=== PATIENT | male | born 1985 | race African-American/Black ===

== ENCOUNTER 2016-03-28 09:25 | Emergency (ER) | payer BC ==
[2016-03-28] MEDS ORDERED: ASPIRIN 81 MG TABLET, CHEWABLE PO ONE (10:58)
--- NOTE | 2016-03-28 11:00 | ER Document Report ---
ED Medical Screen (RME) - General Chief Complaint: Cough Stated Complaint: BREATHING CONCERNS Mode of Arrival: Ambulatory Information source: Patient Notes: Patient complains of cough and difficulty breathing for the past several months that worsened over the past 3 days. Patient does report midsternal chest pain for the past 2 days. No fever. Patient without any wheezing in triage area. hx: Asthma I have greeted and performed a rapid initial assessment of this patient. A comprehensive ED assessment and evaluation of the patient, analysis of test results and completion of the medical decision making process will be conducted by additional ED providers. TRAVEL OUTSIDE OF THE [place] IN LAST 30 DAYS: No - Related Data Allergies/Adverse Reactions: No Known Allergies Allergy (Verified 03/28/16 10:04) Past Medical History - Social History Chew tobacco use (# tins/day): No Pulmonary Medical History: Reports: Hx Asthma Renal/ Medical History: Denies: Hx Peritoneal Dialysis - Immunizations Hx Diphtheria, Pertussis, Tetanus Vaccination: Yes Physical Exam - Vital signs Vitals: Temp Pulse Resp BP Pulse Ox 98.6 F 81 16 134/68 H 95 03/28/16 09:52 03/28/16 09:52 03/28/16 09:52 03/28/16 09:52 03/28/16 09:52 - Respiratory Respiratory status: No respiratory distress Breath sounds: Nonproductive cough. No: Rales, Rhonchi, Stridor, Wheezing Course - Vital Signs Vital signs: Temp Pulse Resp BP Pulse Ox 98.6 F 81 16 134/68 H 95 03/28/16 09:52 03/28/16 09:52 03/28/16 09:52 03/28/16 09:52 03/28/16 09:52
[2016-03-28 11:29] LABS: ABSOLUTE EOSINOPHILS # (AUTO) 0.1 10^3/uL (0.0-0.6); ABSOLUTE LYMPHOCYTES (AUTO) 1.7 10^3/uL (0.5-4.7); ABSOLUTE MONOCYTES (AUTO) 0.6 10^3/uL (0.1-1.4); ABSOLUTE NEUT (AUTO) 7.6 10^3/uL (1.7-8.2); BASOPHILS % (AUTO) 0.4 % (0-2); EOSINOPHILS % (AUTO) 1.1 % (0-6); HEMATOCRIT 46.6 % (37.9-51.0); HEMOGLOBIN 15.6 g/dL (13.5-17.0); HGB HCT DIFFERENCE 0.2; LYMPHOCYTES % (AUTO) 17.3 % (13-45); MEAN CORPUSCULAR HEMOGLOBIN 27.7 pg (27.0-33.4); MEAN CORPUSCULAR HGB CONC 33.5 g/dL (32.0-36.0); MEAN CORPUSCULAR VOLUME 83 fl (80-97); MONOCYTES % (AUTO) 6.1 % (3-13); RED BLOOD COUNT 5.64 10^6/uL (4.35-5.55); RED CELL DISTRIBUTION WIDTH 13.7 % (11.5-14.0); SEGMENTED NEUTROPHILS % (AUTO) 75.1 % (42-78); WHITE BLOOD COUNT 10.1 10^3/uL (4.0-10.5)
[2016-03-28 11:45] LABS: ALANINE AMINOTRANSFERASE 28 U/L (21-72); ALBUMIN 4.6 g/dL (3.5-5.0); ALKALINE PHOSPHATASE 81 U/L (38-126); ANION GAP 12 (5-19); ASPARTATE AMINO TRANSFERASE 21 U/L (17-59); BILIRUBIN,TOTAL 0.9 mg/dL (0.2-1.3); BLOOD UREA NITROGEN 14 mg/dL (7-20); CALCIUM 9.6 mg/dL (8.4-10.2); CARBON DIOXIDE 30 mmol/L (22-30); CHLORIDE 103 mmol/L (98-107); CREATINE KINASE 262 U/L (55-170); CREATININE RESULT 1.15 mg/dL (0.52-1.25); GLUCOSE 80 mg/dL (75-110); POTASSIUM 3.7 mmol/L (3.6-5.0); SODIUM 144.5 mmol/L (137-145); TOTAL PROTEIN 7.9 g/dL (6.3-8.2)
[2016-03-28 11:57] LABS: CREATINE KINASE MB 0.59 ng/mL (<4.55)
[2016-03-28 12:00] LABS: TROPONIN I < 0.012 ng/mL
--- NOTE | 2016-03-28 13:17 | ER Document Report ---
ED Respiratory Problem - General Chief Complaint: Cough Stated Complaint: BREATHING CONCERNS Time seen by provider: 13:14 Mode of Arrival: Ambulatory Information source: Patient Notes: 30-year-old obese, non smoking, non dm, non htn male complaining of cough since Sunday. Last night he coughed a lot with alejandra expectorant He started getting retrosternal chest pain with a cough last night and this morning. Labs have been resulted from triage including reactive enzymes which are negative. Chest x-ray is negative. He has a history of asthma. No pain at this time unless he coughs. TRAVEL OUTSIDE OF THE [place] IN LAST 30 DAYS: No - Related Data Allergies/Adverse Reactions: No Known Allergies Allergy (Verified 03/28/16 10:04) Past Medical History - General Information source: Patient - Social History Smoking Status: Never Smoker Chew tobacco use (# tins/day): No Frequency of alcohol use: None Drug Abuse: None Lives with: Family Family History: Reviewed & Not Pertinent Patient has suicidal ideation: No Patient has homicidal ideation: No Pulmonary Medical History: Reports: Hx Asthma Renal/ Medical History: Denies: Hx Peritoneal Dialysis Surgical Hx: Negative - Immunizations Hx Diphtheria, Pertussis, Tetanus Vaccination: Yes Review of Systems - Review of Systems Constitutional: No symptoms reported EENT: See HPI Cardiovascular: No symptoms reported Respiratory: See HPI Gastrointestinal: No symptoms reported Genitourinary: No symptoms reported Male Genitourinary: No symptoms reported Musculoskeletal: No symptoms reported Skin: No symptoms reported Hematologic/Lymphatic: No symptoms reported Neurological/Psychological: No symptoms reported Physical Exam - Vital signs Vitals: Temp Pulse Resp BP Pulse Ox 98.6 F 81 16 134/68 H 95 03/28/16 09:52 03/28/16 09:52 03/28/16 09:52 03/28/16 09:52 03/28/16 09:52 Interpretation: Normal, Other - pulse ox 95% - General General appearance: Appears well, Alert In distress: None - HEENT Head: Normocephalic, Atraumatic Eyes: Normal Conjunctiva: Normal Pupils: PERRL Tympanic membrane: Normal Pharynx: Erythema Neck: Supple. No: Lymphadenopathy - Respiratory Respiratory status: No respiratory distress Chest status: Nontender Breath sounds: Normal Chest palpation: Normal - Cardiovascular Rhythm: Regular Heart sounds: Normal auscultation Murmur: No - Abdominal Inspection: Normal Distension: No distension Bowel sounds: Normal Tenderness: Nontender Organomegaly: No organomegaly - Back Back: Normal, Nontender - Extremities General upper extremity: Normal inspection, Nontender, Normal color, Normal ROM , Normal temperature General lower extremity: Normal inspection, Nontender, Normal color, Normal ROM , Normal temperature, Normal weight bearing. No: Kirsten's sign - Neurological Neuro grossly intact: Yes Cognition: Normal Orientation: AAOx4 Henrietta Coma Scale Eye Opening: Spontaneous Henrietta Coma Scale Verbal: Oriented Charles Coma Scale Motor: Obeys Commands Charles Coma Scale Total: 15 Speech: Normal Motor strength normal: LUE, RUE, LLE, RLE Sensory: Normal - Psychological Associated symptoms: Normal affect, Normal mood - Skin Skin Temperature: Warm Skin Moisture: Dry Skin Color: Normal Skin irregularity: negative: Rash Course - Re-evaluation Re-evalutation: 03/28/16 13:18 I have consulted with the supervisory physician per [facility] Guidelines., dr catalan, Labs, chest xray are negative. EKG NSR, OK to go home. - Vital Signs Vital signs: Temp Pulse Resp BP Pulse Ox 98.2 F 76 16 127/80 H 99 03/28/16 13:40 03/28/16 13:40 03/28/16 13:40 03/28/16 13:40 03/28/16 13:40 - Laboratory Result Diagrams: 03/28/16 11:05 03/28/16 11:05 Laboratory results interpreted by me: 03/28/16 03/28/16 11:05 11:05 RBC 5.64 H Creatine Kinase 262 H Discharge - Discharge Clinical Impression: chest pain with cough, History of asthma Upper respiratory infection Qualifiers: URI type: unspecified viral URI Qualified Code(s): J06.9 - Acute upper respiratory infection, unspecified Condition: Good Disposition: HOME, SELF-CARE Instructions: Upper Respiratory Illness ([facility]), Asthma ([facility]), Inhaled Bronchodilators ([facility]), Family Physicians / Practices, [facility] Additional Instructions: to er if worse use the inhaler for cough and wheeze see family practice doctor or see the [facility] again for recheck tomorrow Prescriptions: Albuterol Sulfate [Proair HFA Inhalation Aerosol 8.5 gm MDI] 2 puff IH Q3HP PRN #1 [id number].[email or web address] PRN Reason: Forms: Return to Work Referrals: BLANCO SMITH NP [Primary Care Provider] - Follow up as needed
--- NOTE | 2016-03-28 13:24 | EKG REPORT ---
SEVERITY:- NORMAL ECG - SINUS RHYTHM : Confirmed by: Orlando Lopez MD 28-Mar-2016 13:23:55
[2016-03-28 13:43] VITALS: BP 127/80
== END 2016-03-28 13:40 | disposition home or self-care (01) ==
LOC: ER 09:25
DX: J06.9 Acute upper respiratory infection, unspecified (principal); R07.9 Chest pain, unspecified; R05 Cough; R06.02 Shortness of breath
CPT/HCPCS: 36415; 71020; 80053; 82550; 82553; 84484; 85025; 93005; 93010; 99284

== ENCOUNTER 2016-07-24 07:33 | Emergency (ER) | payer BC ==
[2016-07-24] MEDS ORDERED: IPRATROPIUM/ALBUTEROL 0.5-2.5 MG/3 ML AMPUL NEB ONE (08:10)
[2016-07-24] MEDS ORDERED: GUAIFENESIN/D-METHORPHAN (200-20 MG) SYRUP 10 ML PO ONE (08:10)
--- NOTE | 2016-07-24 09:19 | RADIOLOGY REPORT (SQ) ---
EXAM DESCRIPTION: CHEST PA/LAT COMPLETED DATE/TIME: 07/24/2016 9:08 am REASON FOR STUDY: asthma, cough 2 weeks COMPARISON: 03/28/2016 TECHNIQUE: Frontal and lateral radiographic views of the chest acquired. NUMBER OF VIEWS: Two view. LIMITATIONS: None. FINDINGS: LUNGS AND PLEURA: No opacities, masses or pneumothorax. No pleural effusion. MEDIASTINUM AND HILAR STRUCTURES: No masses or contour abnormalities. HEART AND VASCULAR STRUCTURES: Heart normal size. No evidence for failure. BONES: No acute findings. HARDWARE: None in the chest. OTHER: No other significant finding. IMPRESSION: NO SIGNIFICANT RADIOGRAPHIC FINDING IN THE CHEST. TECHNICAL DOCUMENTATION: JOB ID: [id number] [employer]- All Rights Reserved
[2016-07-24] MEDS ORDERED: AZITHROMYCIN 250 MG TABLET PO ONE (09:31)
--- NOTE | 2016-07-24 09:32 | ER Document Report ---
ED Respiratory Problem - General Chief Complaint: Cough Stated Complaint: COUGH Time Seen by Provider: 07/24/16 08:10 Mode of Arrival: Ambulatory Information source: Patient Notes: Is a 30-year-old asthmatic male who presents to the ER today for 2 weeks of cough, shortness of breath, wheezing. Patient denies any fevers or chills but states that his inhaler has not been working. He uses ProAir every 4 hours which she does have enough off. TRAVEL OUTSIDE OF THE [place] IN LAST 30 DAYS: No - Related Data Allergies/Adverse Reactions: No Known Allergies Allergy (Verified 07/24/16 07:42) Past Medical History - General Information source: Patient - Social History Smoking Status: Current Every Day Smoker Chew tobacco use (# tins/day): No Frequency of alcohol use: Occasional Drug Abuse: None Family History: Reviewed & Not Pertinent Patient has suicidal ideation: No Patient has homicidal ideation: No Pulmonary Medical History: Reports: Hx Asthma Renal/ Medical History: Denies: Hx Peritoneal Dialysis - Immunizations Hx Diphtheria, Pertussis, Tetanus Vaccination: Yes Review of Systems - Review of Systems Constitutional: No symptoms reported EENT: No symptoms reported Cardiovascular: No symptoms reported Respiratory: See HPI Gastrointestinal: No symptoms reported Genitourinary: No symptoms reported Male Genitourinary: No symptoms reported Musculoskeletal: No symptoms reported Skin: No symptoms reported Hematologic/Lymphatic: No symptoms reported Neurological/Psychological: No symptoms reported Physical Exam - Vital signs Vitals: Temp Pulse Resp BP Pulse Ox 98.7 F 66 20 124/62 97 07/24/16 07:42 07/24/16 07:42 07/24/16 07:42 07/24/16 07:42 07/24/16 07:42 - Notes Notes: PHYSICAL EXAMINATION: GENERAL: Mildly ill-appearing, but in no acute distress. HEAD: Atraumatic, normocephalic. EYES: Pupils equal round and reactive to light, extraocular movements intact, sclera anicteric, conjunctiva are normal. ENT: ear canals without erythema or foreign body, TMs pearly starr with good bony landmarks, nares patent, oropharynx clear without exudates. Moist mucous membranes. NECK: Normal range of motion, supple without lymphadenopathy LUNGS: Mild expiratory wheezes bilateral lower lung white, no rales or rhonchi. HEART: Regular rate and rhythm without murmurs EXTREMITIES: Normal range of motion, no pitting edema. No cyanosis. NEUROLOGICAL: Cranial nerves grossly intact. Normal sensory/motor exams. PSYCH: Normal mood, normal affect. SKIN: Warm, Dry, normal turgor, no rashes or lesions noted Course - Re-evaluation Re-evalutation: 07/24/16 09:34 Chest x-ray is negative for any acute pathology. Patient feels better after breathing treatment - Vital Signs Vital signs: Temp Pulse Resp BP Pulse Ox 98.7 F 66 20 124/62 97 07/24/16 07:42 07/24/16 07:42 07/24/16 07:42 07/24/16 07:42 07/24/16 07:42 Discharge - Discharge Clinical Impression: Asthmatic bronchitis Qualifiers: Asthma severity: unspecified severity Asthma complication type: with acute exacerbation Qualified Code(s): J45.901 - Unspecified asthma with (acute) exacerbation Condition: Stable Disposition: HOME, SELF-CARE Instructions: Bronchitis With Bronchospasm (Wheezing) ([facility]) Additional Instructions: Return immediately for any new or worsening symptoms. Follow up with primary care provider, call tomorrow to make followup appointment. Prescriptions: Azithromycin [Zithromax 250 mg Tablet] 250 mg PO ASDIR PRN #6 tablet PRN Reason: D-Methorphan Hb/Prometh HCl [Promethazine-Dm Syrup] 5 ml PO Q8 PRN #120 ml PRN Reason: Prednisone 60 mg PO DAILY #15 tablet Forms: Return to Work
[2016-07-24 10:05] VITALS: BP 110/65
== END 2016-07-24 09:50 | disposition home or self-care (01) ==
LOC: ER 07:33
DX: J45.901 Unspecified asthma with (acute) exacerbation (principal); R05 Cough; R06.02 Shortness of breath; F17.200 Nicotine dependence, unspecified, uncomplicated; Z79.899 Other long term (current) drug therapy
CPT/HCPCS: 94640; 99283; 71020; J3490; J7620

== ENCOUNTER 2017-06-25 15:15 | Emergency (ER) | payer BC ==
[2017-06-25 15:46] LABS: APPEARANCE,URINE CLEAR; BILIRUBIN,URINE NEGATIVE (NEGATIVE); COLOR,URINE YELLOW; GLUCOSE, URINE NEGATIVE (NEGATIVE); KETONES,URINE NEGATIVE (NEGATIVE); LEUKOCYTE ESTERASE,URINE NEGATIVE (NEGATIVE); NITRITE,URINE NEGATIVE (NEGATIVE); PROTEIN,URINE NEGATIVE (NEGATIVE); URINE SPECIFIC GRAVITY 1.021; UROBILINOGEN,URINE NEGATIVE mg/dL (<2.0)
[2017-06-25] MEDS ORDERED: ACETAMINOPHEN 325 MG TABLET PO ONE (16:34)
--- NOTE | 2017-06-25 16:37 | ER Document Report ---
ED Medical Screen (RME) - General Chief Complaint: Penile Problem Stated Complaint: GROIN PAIN Time Seen by Provider: 06/25/17 16:33 Notes: RAPID MEDICAL EVALUATION DISCLOSURE I have seen this patient as part of a Rapid Medical Evaluation and, if applicable, placed any initially appropriate orders. The patient will be seen and fully evaluated, including a full history and physical exam, by a provider ( in Main ED or Fast Track) when a room becomes available. 31-year-old male here with complaints of left testicular pain that started 2 days ago. Pain is intermittent. Pain is worse with laying on the left side and laying on the back. He has been taking aspirin for the pain. He denies any redness or swelling of the scrotum or testicles. He denies any abdominal pain penile pain/swelling discharge hematuria dysuria or frequency. EXAM Clear to auscultation bilaterally Regular rate and rhythm No abdominal tenderness TRAVEL OUTSIDE OF THE [place] IN LAST 30 DAYS: No - Related Data Allergies/Adverse Reactions: No Known Allergies Allergy (Verified 06/25/17 15:21) Past Medical History Pulmonary Medical History: Reports: Hx Asthma Renal/ Medical History: Denies: Hx Peritoneal Dialysis - Immunizations Hx Diphtheria, Pertussis, Tetanus Vaccination: Yes Physical Exam - Vital signs Vitals: Temp Pulse Resp BP Pulse Ox 98.7 F 67 14 143/76 H 96 06/25/17 15:23 06/25/17 15:23 06/25/17 15:23 06/25/17 15:23 06/25/17 15:23 Course - Vital Signs Vital signs: Temp Pulse Resp BP Pulse Ox 98.7 F 67 14 143/76 H 96 06/25/17 15:23 06/25/17 15:23 06/25/17 15:23 06/25/17 15:23 06/25/17 15:23
[2017-06-25 18:53] LABS: CHLAM PCR NOT DETECTED (NOT DETECT); GON PCR NOT DETECTED (NOT DETECT)
--- NOTE | 2017-06-25 19:10 | ER Document Report ---
ED General - General Chief Complaint: Penile Problem Stated Complaint: GROIN PAIN Time Seen by Provider: 06/25/17 16:33 Notes: Patient is a 31-year-old male without chronic medical problems who presents with 6-8 months of intermittent left testicular pain. The patient states 1-2 times weekly he develops approximately 1-2 hours of stabbing, severe, throbbing pain to his left testicle. He states the pain comes on abruptly and generally spontaneously resolves. He has been evaluated in the emergency department as well as by urologist without etiology of the pain being discovered. He states that he believes the pain may be related to wearing tight fitting pants at work. He does wear loose fitting boxer briefs. He denies any dysuria, penile discharge, scrotal lesions or scrotal swelling. No vomiting. No fever. TRAVEL OUTSIDE OF THE [place] IN LAST 30 DAYS: No - Related Data Allergies/Adverse Reactions: No Known Allergies Allergy (Verified 06/25/17 15:21) Past Medical History - General Information source: Patient - Social History Smoking Status: Never Smoker Frequency of alcohol use: None Drug Abuse: None Lives with: Alone Family History: Reviewed & Not Pertinent Patient has suicidal ideation: No Patient has homicidal ideation: No Pulmonary Medical History: Reports: Hx Asthma Renal/ Medical History: Denies: Hx Peritoneal Dialysis - Immunizations Hx Diphtheria, Pertussis, Tetanus Vaccination: Yes Review of Systems - Review of Systems Notes: Constitutional: Negative for fever. HENT: Negative for sore throat. Eyes: Negative for visual changes. Cardiovascular: Negative for chest pain. Respiratory: Negative for shortness of breath. Gastrointestinal: Negative for abdominal pain, vomiting or diarrhea. Genitourinary: Positive for left testicular pain Musculoskeletal: Negative for back pain. Skin: Negative for rash. Neurological: Negative for headaches, weakness or numbness. 10 point ROS negative except as marked above and in HPI. Physical Exam - Vital signs Vitals: Temp Pulse Resp BP Pulse Ox 98.7 F 67 14 143/76 H 96 06/25/17 15:23 06/25/17 15:23 06/25/17 15:23 06/25/17 15:23 06/25/17 15:23 Interpretation: Normal Notes: PHYSICAL EXAMINATION: GENERAL: Well-appearing, well-nourished and in no acute distress. HEAD: Atraumatic, normocephalic. EYES: Pupils equal round and reactive to light, extraocular movements intact, sclera anicteric, conjunctiva are normal. ENT: nares patent, oropharynx clear without exudates. Moist mucous membranes. NECK: Normal range of motion, supple without lymphadenopathy LUNGS: Breath sounds clear to auscultation bilaterally and equal. No wheezes rales or rhonchi. HEART: Regular rate and rhythm without murmurs ABDOMEN: Soft, nontender, normoactive bowel sounds. No guarding, no rebound. No masses appreciated. : No testicular swelling, tenderness or pain on palpation of the testicles. No epididymal tenderness. No scrotal swelling. Positive cremasteric reflex bilaterally. No penile lesions or discharge. EXTREMITIES: Normal range of motion, no pitting or edema. No cyanosis. NEUROLOGICAL: No focal neurological deficits. Moves all extremities spontaneously and on command. PSYCH: Normal mood, normal affect. SKIN: Warm, Dry, normal turgor, no rashes or lesions noted. Course - Re-evaluation Re-evalutation: 06/25/17 19:07 Presents with 8 months of intermittent left testicular pain. Testicular exam is benign without any swelling, induration or pain to palpation of the testicle or epididymis on the left. Positive cremasteric reflex bilaterally. No hernia on examination. Anticipate the patient may be experiencing pain from an overly tight work uniform as he reports that it typically happens after he wears the pants that he needs to wear for his work. He also wears nonsupportive underwear. I have encouraged him to begin using more supportive underwear and will write a work note to allow him to wear pants that are less tight fitting so as to prevent this again. Urinalysis and gonorrhea and Chlamydia are unremarkable. Testicular ultrasound likewise unremarkable. At this time will discharge with return precautions and follow-up recommendations. Verbal discharge instructions given a the bedside and opportunity for questions given. Medication warnings reviewed. Patient is in agreement with this plan and has verbalized understanding of return precautions and the need for primary care follow-up in the next 24-72 hours. - Vital Signs Vital signs: Temp Pulse Resp BP Pulse Ox 98.9 F 74 20 138/101 H 99 06/25/17 20:31 06/25/17 20:31 06/25/17 20:31 06/25/17 20:31 06/25/17 20:31 - Diagnostic Test Radiology reviewed: Reports reviewed Discharge - Discharge Clinical Impression: Left testicular pain Condition: Good Disposition: HOME, SELF-CARE Additional Instructions: The exact cause of your testicular pain is uncertain but may be due to compression of your testicle from the pants are wearing at work and wearing unsupportive underwear. As we discussed, please purchase spandex underwear that go down to your knee to provide more appropriate support for your scrotum. Please also wear less tight fitting pants so as to avoid compressing the scrotum and your left testicle. Return if you develop worsening pain, persistent vomiting, fever, pain when you urinate, penile discharge, or any other symptoms that are worrisome to you. Follow-up with your primary care doctor within the next several days or sooner if you are having additional concerns. Forms: Special Work Note, Return to Work
--- NOTE | 2017-06-25 20:07 | RADIOLOGY REPORT (SQ) ---
EXAM DESCRIPTION: U/S SCROTUM W/DOPPLER COMPLETED DATE/TIME: 06/25/2017 7:42 pm REASON FOR STUDY: L testicle pain; eval torsion orchitis epididymiti COMPARISON: None. TECHNIQUE: Static and realtime howard scale imaging of the scrotum and testes. Selected color Doppler and spectral images recorded to document blood flow. LIMITATIONS: None. FINDINGS: RIGHT: TESTICLE: Normal size. Normal echotexture. Normal blood flow. No mass. EPIDIDYMIS: Normal. HYDROCELE OR VARICOCELE: No. HERNIA OR EXTRA-TESTICULAR MASS: No. OTHER: No other significant finding. LEFT: TESTICLE: Normal size. Normal echotexture. Normal blood flow. No mass. EPIDIDYMIS: Normal. HYDROCELE OR VARICOCELE: No. HERNIA OR EXTRA-TESTICULAR MASS: No. OTHER: No other significant finding. IMPRESSION: NORMAL SCROTAL ULTRASOUND. NO EVIDENCE OF TESTICULAR MASS OR TORSION. TECHNICAL DOCUMENTATION: JOB ID: [id number] [employer]- All Rights Reserved Reading location - IP/workstation name: [email or web address]
[2017-06-25 20:34] VITALS: BP 138/101
== END 2017-06-25 20:32 | disposition home or self-care (01) ==
LOC: ER 15:15
DX: N50.812 Left testicular pain (principal); J45.909 Unspecified asthma, uncomplicated
CPT/HCPCS: 76870; 81001; 87491; 87591; 93976; 99284

== ENCOUNTER 2017-06-29 09:31 | Emergency (ER) | payer BC ==
--- NOTE | 2017-06-29 09:55 | ER Document Report ---
ED Medical Screen (RME) - General Chief Complaint: Testicular Problem Stated Complaint: TESTICULAR PAIN Time Seen by Provider: 06/29/17 09:51 Mode of Arrival: Ambulatory Information source: Patient TRAVEL OUTSIDE OF THE [place] IN LAST 30 DAYS: No - Related Data Allergies/Adverse Reactions: No Known Allergies Allergy (Verified 06/29/17 09:33) Past Medical History - Social History Chew tobacco use (# tins/day): No Frequency of alcohol use: None Drug Abuse: None - Medical History Notes: RAPID MEDICAL EVALUATION DISCLOSURE I have seen this patient as part of a Rapid Medical Evaluation and, if applicable, placed any initially appropriate orders. The patient will be seen and fully evaluated, including a full history and physical exam, by a provider ( in Main ED or Fast Track) when a room becomes available. She was seen here Sunday for testicular pain and had negative ultrasound. He states that the pain was on his left testicle and now it is involving both testicles. He denies any dysuria urgency frequency penile discharge unprotected sexual intercourse or trauma to the area. He states that at age 16 he had a twisting of 1 of his testicles and he underwent surgery. Pulmonary Medical History: Reports: Hx Asthma Renal/ Medical History: Denies: Hx Peritoneal Dialysis - Immunizations Hx Diphtheria, Pertussis, Tetanus Vaccination: Yes Physical Exam - Vital signs Vitals: Temp Pulse Resp BP Pulse Ox 98.4 F 72 18 140/81 H 97 06/29/17 09:42 06/29/17 09:42 06/29/17 09:42 06/29/17 09:42 06/29/17 09:42 Course - Vital Signs Vital signs: Temp Pulse Resp BP Pulse Ox 98.4 F 72 18 140/81 H 97 06/29/17 09:42 06/29/17 09:42 06/29/17 09:42 06/29/17 09:42 06/29/17 09:42
[2017-06-29 10:24] LABS: APPEARANCE,URINE CLEAR; BILIRUBIN,URINE NEGATIVE (NEGATIVE); COLOR,URINE YELLOW; GLUCOSE, URINE NEGATIVE (NEGATIVE); KETONES,URINE NEGATIVE (NEGATIVE); LEUKOCYTE ESTERASE,URINE NEGATIVE (NEGATIVE); NITRITE,URINE NEGATIVE (NEGATIVE); PROTEIN,URINE NEGATIVE (NEGATIVE); URINE SPECIFIC GRAVITY 1.023; UROBILINOGEN,URINE NEGATIVE mg/dL (<2.0)
--- NOTE | 2017-06-29 12:21 | RADIOLOGY REPORT (SQ) ---
EXAM DESCRIPTION: U/S SCROTUM W/DOPPLER COMPLETED DATE/TIME: 06/29/2017 12:05 pm REASON FOR STUDY: scrotal pain COMPARISON: None. TECHNIQUE: Static and realtime howard scale imaging of the scrotum and testes. Selected color Doppler and spectral images recorded to document blood flow. LIMITATIONS: None. FINDINGS: RIGHT: TESTICLE: Normal size. Normal echotexture. Normal blood flow. No mass. EPIDIDYMIS: Normal. HYDROCELE OR VARICOCELE: No. HERNIA OR EXTRA-TESTICULAR MASS: No. OTHER: No other significant finding. LEFT: TESTICLE: Normal size. Normal echotexture. Normal blood flow. No mass. EPIDIDYMIS: Normal. HYDROCELE OR VARICOCELE: No. HERNIA OR EXTRA-TESTICULAR MASS: No. OTHER: No other significant finding. IMPRESSION: NO EVIDENCE OF TESTICULAR MASS OR TORSION. TECHNICAL DOCUMENTATION: JOB ID: [id number]- All Rights Reserved Reading location - IP/workstation name: [email or web address]
--- NOTE | 2017-06-29 12:38 | ER Document Report ---
ED General - General Chief Complaint: Testicular Problem Stated Complaint: TESTICULAR PAIN Time Seen by Provider: 06/29/17 09:51 Mode of Arrival: Ambulatory Information source: Patient, ON LICENSE OF [facility] Records Notes: 31-year-old male who had a testicular torsion reversed when he was around 16 years old with surgical intervention presents with complaints of testicular pain. Patient notes over the past year now he has had multiple episodes of testicular pain, denies any difficulty urinating denies any urinary frequency or discharge. Patient notes the pain was initially on the right side then moved to both sides on the left side. Patient denies any new symptoms but does note that over the past few weeks has been seen by the urologist 3 times TRAVEL OUTSIDE OF THE [place] IN LAST 30 DAYS: No - Related Data Allergies/Adverse Reactions: No Known Allergies Allergy (Verified 06/29/17 09:33) Past Medical History - General Information source: Patient - Social History Smoking Status: Never Smoker Chew tobacco use (# tins/day): No Frequency of alcohol use: None Drug Abuse: None Family History: Reviewed & Not Pertinent Patient has suicidal ideation: No Patient has homicidal ideation: No Pulmonary Medical History: Reports: Hx Asthma Renal/ Medical History: Denies: Hx Peritoneal Dialysis - Immunizations Hx Diphtheria, Pertussis, Tetanus Vaccination: Yes Review of Systems - Review of Systems Notes: REVIEW OF SYSTEMS: CONSTITUTIONAL : Denies fever, chills, or sweats. Denies recent illness. EENT: Denies eye, ear, throat, or mouth pain or symptoms. Denies nasal or sinus congestion or discharge. Denies throat, tongue, or mouth swelling or difficulty swallowing. CARDIOVASCULAR: Denies chest pain. Denies palpitations or racing or irregular heart beat. Denies ankle edema. RESPIRATORY: Denies cough, cold, or chest congestion. Denies shortness of breath, difficulty breathing, or wheezing. GASTROINTESTINAL: Denies abdominal pain or distention. Denies nausea, vomiting , or diarrhea. Denies blood in vomitus, stools, or per rectum. Denies black, tarry stools. Denies constipation. GENITOURINARY: Denies difficulty urinating, painful urination, burning, frequency, blood in urine, or discharge. Admits to testicular pain MUSCULOSKELETAL: Denies back or neck pain or stiffness. Denies joint pain or swelling. SKIN: Denies rash, lesions or sores. HEMATOLOGIC : Denies easy bruising or bleeding. LYMPHATIC: Denies swollen, enlarged glands. NEUROLOGICAL: Denies confusion or altered mental status. Denies passing out or loss of consciousness. Denies dizziness or lightheadedness. Denies headache. Denies weakness or paralysis or loss of use of either side. Denies problems with gait or speech. Denies sensory loss, numbness, or tingling. Denies seizures. PSYCHIATRIC: Denies anxiety or stress. Denies depression, suicidal ideation, or homicidal ideation. ALL OTHER SYSTEMS REVIEWED AND NEGATIVE. Dictation was performed using [employer] recognition software PHYSICAL EXAMINATION: GENERAL: Well-appearing, well-nourished and in no acute distress. HEAD: Atraumatic, normocephalic. EYES: Pupils equal round and reactive to light, extraocular movements intact, sclera anicteric, conjunctiva are normal. ENT: Nares patent, oropharynx clear without exudates. Moist mucous membranes. NECK: Normal range of motion, supple without lymphadenopathy LUNGS: Breath sounds clear to auscultation bilaterally and equal. No wheezes rales or rhonchi. HEART: Regular rate and rhythm without murmurs ABDOMEN: Soft, nontender, nondistended abdomen. No guarding, no rebound. No masses appreciated. Testicular examination notes no swelling no erythema normal cremaster reflex it is tender on the left testicle Musculoskeletal: Normal range of motion, no pitting or edema. No cyanosis. NEUROLOGICAL: Cranial nerves grossly intact. Normal speech, normal gait. Normal sensory, motor exams PSYCH: Normal mood, normal affect. SKIN: Warm, Dry, normal turgor, no rashes or lesions noted. Physical Exam - Vital signs Vitals: Temp Pulse Resp BP Pulse Ox 98.4 F 72 18 140/81 H 97 06/29/17 09:42 06/29/17 09:42 06/29/17 09:42 06/29/17 09:42 06/29/17 09:42 Course - Re-evaluation Re-evalutation: 06/29/17 16:22 Patient's presentation is most consistent with pain which I believe is secondary to the previous surgical procedures and possible scar tissue. The patient overall looks well is in no distress has follow-up with his own urologist on Sunday. Patient will be given light duty is otherwise well-appearing no distress and stable for discharge - Vital Signs Vital signs: Temp Pulse Resp BP Pulse Ox 98.7 F 76 16 144/84 H 99 06/29/17 12:48 06/29/17 12:48 06/29/17 12:48 06/29/17 12:48 06/29/17 12:48 - Diagnostic Test Radiology reviewed: Image reviewed - Doppler testicle notes no significant abnormality, Reports reviewed Discharge - Discharge Clinical Impression: Testicular pain Condition: Stable Disposition: HOME, SELF-CARE Instructions: Testicular Pain ([facility]) Additional Instructions: Please allow for light duty for the next 3 days or until cleared by urologist Referrals: JOSE ARMANDO BECERRA MD [KAMLA PANG] - Follow up tomorrow
[2017-06-29 12:50] VITALS: BP 144/84
== END 2017-06-29 12:50 | disposition home or self-care (01) ==
LOC: ER 09:31
DX: N50.812 Left testicular pain (principal); Z87.438 Personal history of other diseases of male genital organs; Z98.890 Other specified postprocedural states; J45.909 Unspecified asthma, uncomplicated
CPT/HCPCS: 76870; 81001; 93976; 99284

== ENCOUNTER 2018-12-27 20:58 | Emergency (ER) | payer BC ==
[2018-12-27] MEDS ORDERED: PREDNISONE 20 MG TABLET PO ONE (21:15)
--- NOTE | 2018-12-27 21:15 | ER Document Report ---
ED Medical Screen (RME) - General Chief Complaint: Shortness Of Breath Stated Complaint: DIFFICULTY BREATHING Time Seen by Provider: 12/27/18 21:08 Mode of Arrival: Ambulatory Information source: Patient Notes: 33-year-old male presents to ED for complaint of shortness of breath and tightness. He states he started with upper respiratory infection on and then yesterday became very short of breath and his breathing became more difficult. He developed tightness when he tried to take a deep breath. He states he took 2 DuoNeb's about 730 tonight. O2 sats are 98%. Lungs are dimin ished but no wheezes audible. Afebrile with a pulse of 91 blood pressure 146/93. He states he is not on any steroids. He states he also used his albuterol inhaler after the DuoNeb's. We will treat with 60 mg of prednisone at this time get a chest x-ray and have him reexamined. States he does not smoke drink or use any illicit drugs and he has a history of asthma no other medical history. I have greeted and performed a rapid initial assessment of this patient. A comprehensive ED assessment and evaluation of the patient, analysis of test results and completion of medical decision making process will be conducted by an additional ED providers. TRAVEL OUTSIDE OF THE [place] IN LAST 30 DAYS: No - Related Data Allergies/Adverse Reactions: No Known Allergies Allergy (Verified 06/29/17 09:33) Past Medical History Pulmonary Medical History: Reports: Hx Asthma Renal/ Medical History: Denies: Hx Peritoneal Dialysis - Immunizations Hx Diphtheria, Pertussis, Tetanus Vaccination: Yes
--- NOTE | 2018-12-27 21:52 | RADIOLOGY REPORT (SQ) ---
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 Asthma exacerbation. COMPARISON: 03/28/2016 FINDINGS: The heart size is within normal limits. No consolidation, pleural effusion, or pneumothorax is seen. No acute bony findings. IMPRESSION: No acute cardiopulmonary disease.
[2018-12-28 00:22] VITALS: BP 149/97
== END 2018-12-28 00:47 | disposition home or self-care (01) ==
LOC: ER 12-28 00:26
DX: R06.02 Shortness of breath (principal); R07.9 Chest pain, unspecified
CPT/HCPCS: 99284; 71046; J7512

== ENCOUNTER 2019-01-31 13:22 | Observation (INO) | payer BC ==
--- NOTE | 2019-01-31 14:55 | ER Document Report ---
ED Medical Screen (RME) - General Stated Complaint: ABDOMINAL PAIN Time Seen by Provider: 01/31/19 14:51 TRAVEL OUTSIDE OF THE [place] IN LAST 30 DAYS: No - HPI Notes: 01/31/19 14:53 Patient is a 33-year-old male with no significant past medical history presents complaining of having right upper quadrant/right side pain for the past several days and was noted to have gallstones on a CT scan that was performed yesterday by his family doctor. He was told that if he has recurrent pain to come to the emergency department for evaluation as his referral to surgery could take another week or 2. He is able to eat and drink without difficulty. He is urinating normally. No other concerns or complaints. No surgical history to his abdomen. No fever, Chest pain, shortness of breath. I have treated and performed a rapid initial assessment of this patient. A comprehensive ED assessment and evaluation of the patient, analysis of test results and completion of medical decision making process will be conducted by additional ED providers. PHYSICAL EXAMINATION: GENERAL: Well-appearing, well-nourished and in no acute distress. A&Ox4. Answers questions appropriately. Abdomen: Limited exam in triage, abdomen is otherwise soft. Mild tenderness right upper quadrant area. - Related Data Allergies/Adverse Reactions: prednisone Adverse Reaction (Verified 01/31/19 14:51) Migraine Past Medical History - Social History Chew tobacco use (# tins/day): No Drug Abuse: None Pulmonary Medical History: Reports: Hx Asthma Renal/ Medical History: Denies: Hx Peritoneal Dialysis - Immunizations Hx Diphtheria, Pertussis, Tetanus Vaccination: Yes Physical Exam - Vital signs Vitals: Temp Resp Pulse Ox 98.4 F 16 96 01/31/19 13:23 01/31/19 13:23 01/31/19 13:23 Course - Vital Signs Vital signs: Temp Pulse Resp BP Pulse Ox 98.4 F 92 16 148/78 H 96 01/31/19 13:27 01/31/19 13:27 01/31/19 13:27 01/31/19 13:27 01/31/19 13:27
[2019-01-31 15:30] LABS: ABSOLUTE EOSINOPHILS # (AUTO) 0.1 10^3/uL (0.0-0.6); ABSOLUTE LYMPHOCYTES (AUTO) 1.4 10^3/uL (0.5-4.7); ABSOLUTE MONOCYTES (AUTO) 0.5 10^3/uL (0.1-1.4); ABSOLUTE NEUT (AUTO) 7.6 10^3/uL (1.7-8.2); BASOPHILS % (AUTO) 0.2 % (0-2); EOSINOPHILS % (AUTO) 1.4 % (0-6); HEMATOCRIT 46.7 % (37.9-51.0); HEMOGLOBIN 15.6 g/dL (13.5-17.0); LYMPHOCYTES % (AUTO) 14.4 % (13-45); MEAN CORPUSCULAR HEMOGLOBIN 27.6 pg (27.0-33.4); MEAN CORPUSCULAR HGB CONC 33.5 g/dL (32.0-36.0); MEAN CORPUSCULAR VOLUME 83 fl (80-97); MONOCYTES % (AUTO) 5.2 % (3-13); PLATELET COUNT 228 10^3/uL (150-450); RED BLOOD COUNT 5.65 10^6/uL (4.35-5.55); RED CELL DISTRIBUTION WIDTH 14.5 % (11.5-14.0); SEGMENTED NEUTROPHILS % (AUTO) 78.8 % (42-78); TOTAL CELLS COUNTED % (AUTO) 100 %; WHITE BLOOD COUNT 9.6 10^3/uL (4.0-10.5)
[2019-01-31 15:49] LABS: APPEARANCE,URINE CLEAR; BILIRUBIN,URINE NEGATIVE (NEGATIVE); COLOR,URINE YELLOW; GLUCOSE, URINE NEGATIVE (NEGATIVE); KETONES,URINE NEGATIVE (NEGATIVE); PROTEIN,URINE NEGATIVE (NEGATIVE); URINE SPECIFIC GRAVITY 1.025
[2019-01-31 15:57] LABS: ALKALINE PHOSPHATASE 72 U/L (38-126); ANION GAP 10 (5-19); ASPARTATE AMINO TRANSFERASE 25 U/L (17-59); BILIRUBIN,DIRECT 0.2 mg/dL (0.0-0.4); BILIRUBIN,TOTAL 0.6 mg/dL (0.2-1.3); BLOOD UREA NITROGEN 12 mg/dL (7-20); CALCIUM 9.5 mg/dL (8.4-10.2); CARBON DIOXIDE 27 mmol/L (22-30); CHLORIDE 104 mmol/L (98-107); GLUCOSE 90 mg/dL (75-110); POTASSIUM 3.6 mmol/L (3.6-5.0); TOTAL PROTEIN 7.6 g/dL (6.3-8.2)
--- NOTE | 2019-01-31 16:03 | RADIOLOGY REPORT (SQ) ---
EXAM DESCRIPTION: U/S ABDOMEN LIMITED W/O DOP COMPLETED DATE/TIME: 01/31/2019 3:49 pm REASON FOR STUDY: RUQ pain, recent dx of stones COMPARISON: None. TECHNIQUE: Dynamic and static grayscale images acquired of the abdomen and recorded on PACS. Additio nal selected color Doppler and spectral images recorded. LIMITATIONS: None. FINDINGS: PANCREAS: Pancreas is largely obscured by overlying bowel gas. LIVER: No masses. Echotexture normal. LIVER VASCULATURE: Normal directional flow of the main portal vein and hepatic veins. GALLBLADDER: Gallbladder wall is at the upper limits of normal. Multiple small stones. There is slu dge. ULTRASOUND-DETECTED ABRAHAM'S SIGN: Positive. INTRAHEPATIC DUCTS AND COMMON DUCT: CBD and intrahepatic ducts normal caliber. No filling defects. INFERIOR VENA CAVA: Normal flow. AORTA: Obscured by overlying bowel gas. RIGHT KIDNEY: Normal size. Normal echogenicity. No solid or suspicious masses. No hydronephrosis. No calcifications. PERITONEAL AND RIGHT PLEURAL SPACE: No ascites or effusions. OTHER: No other significant findings. IMPRESSION: Small stones and gallbladder sludge. The wall is at the upper limits of normal in thick ness. There is a positive sonographic Abraham's sign. No pericholecystic fluid. TECHNICAL DOCUMENTATION: JOB ID: [id number] [employer]- All Rights Reserved Reading location - IP/workstation name: [email or web address]
--- NOTE | 2019-01-31 18:42 | ER Document Report ---
Entered by TIMOTEO ROACH SCRIBE 01/31/19 1748 Acting as scribe for:MARVIN MUÑIZ IV, MD ED GI/ - General Chief Complaint: Abdominal Pain Stated Complaint: ABDOMINAL PAIN Time Seen by Provider: 01/31/19 14:51 Mode of Arrival: Ambulatory Information source: Patient Notes: This 33 year old patient presents to the emergency department today with complaints of right upper quadrant abdominal pain for the last 3 days. Patient had an outpatient CT scan yesterday for this pain which showed gallstones. Patient states the pain happens "out of nowhere" and he is unable to correlate it with food. Patient denies nausea or vomiting. TRAVEL OUTSIDE OF THE [place] IN LAST 30 DAYS: No - Related Data Allergies/Adverse Reactions: prednisone Adverse Reaction (Verified 01/31/19 14:51) Migraine Past Medical History - General Information source: Patient - Social History Smoking Status: Never Smoker Cigarette use (# per day): No Chew tobacco use (# tins/day): No Drug Abuse: None Lives with: Family Family History: Reviewed & Not Pertinent Patient has suicidal ideation: No Patient has homicidal ideation: No Pulmonary Medical History: Reports: Hx Asthma Renal/ Medical History: Denies: Hx Peritoneal Dialysis - Immunizations Hx Diphtheria, Pertussis, Tetanus Vaccination: Yes Review of Systems - Review of Systems Constitutional: No symptoms reported EENT: No symptoms reported Cardiovascular: No symptoms reported Respiratory: No symptoms reported Gastrointestinal: See HPI, Abdominal pain. denies: Nausea, Vomiting Genitourinary: No symptoms reported Male Genitourinary: No symptoms reported Musculoskeletal: No symptoms reported Skin: No symptoms reported Hematologic/Lymphatic: No symptoms reported Neurological/Psychological: No symptoms reported -: Yes All other systems reviewed and negative Physical Exam - Vital signs Vitals: Temp Resp Pulse Ox 98.4 F 16 96 01/31/19 13:23 01/31/19 13:23 01/31/19 13:23 - Notes Notes: Physical Exam: General: Alert, appears well. HEENT: Normocephalic. Atraumatic. PERRL. Extraocular movements intact. Oropharynx clear. Neck: Supple. Non-tender. Respiratory: No respiratory distress. Clear and equal breath sounds bilaterally. Cardiovascular: Regular rate and rhythm. Abdominal: Obese, right upper quadrant tenderness with palpation. No distension. Normal Bowel Sounds. Back: No gross abnormalities. Extremities: Moves all four extremities. Upper extremities: Normal inspection. Normal ROM. Lower extremities: Normal inspection. No edema. Normal ROM. Neurological: Normal cognition. AAOx4. Normal speech. Psychological: Normal affect. Normal Mood. Skin: Warm. Dry. Normal color. Course - Vital Signs Vital signs: Temp Pulse Resp BP Pulse Ox 98.4 F 92 16 148/78 H 96 01/31/19 13:27 01/31/19 13:27 01/31/19 13:27 01/31/19 13:27 01/31/19 13:27 - Laboratory Result Diagrams: 01/31/19 15:00 01/31/19 15:00 Laboratory results interpreted by me: 01/31/19 01/31/19 01/31/19 15:00 15:00 15:00 RBC 5.65 H RDW 14.5 H Seg Neutrophils % 78.8 H Lipase 313.9 H Urine Urobilinogen 2.0 H - Consults DR. NOLEN, SURGICALIST Time consulted: 17:57 Reason for consultation: 01/31/19 17:57 RUQ PAIN, THICKENED GALLBLADDER WALL ON US Consulted provider: will come to ER Discharge - Discharge Clinical Impression: Cholecystitis Clinical Impression: (Ruled Out): Cholelithiasis Condition: Good Disposition: ADMITTED OBSERVATION Admitting Provider: Surgicalist - DR. NOLEN Unit Admitted: Surgical Floor I personally performed the services described in the documentation, reviewed and edited the documentation which was dictated to the scribe in my presence, and it accurately records my words and actions.
[2019-01-31] MEDS ORDERED: ONDANSETRON HCL INJ/PF 4 MG/2 ML SDV IV ONE (18:45)
[2019-01-31] MEDS ORDERED: HYDROMORPHONE HCL INJ/PF 2 MG/ML AMPULE IV ONE (18:45)
[2019-01-31] MEDS ORDERED: ONDANSETRON HCL INJ/PF 4 MG/2 ML SDV IV PRN (18:56)
[2019-01-31] MEDS ORDERED: MORPHINE SULFATE 10 MG/ML INJ IV PRN (19:04)
[2019-01-31] MEDS ORDERED: PIPERACILLIN/TAZOBACTAM 3.375 GM VIAL IV SCH (19:15)
--- NOTE | 2019-01-31 19:22 | PDOC H&P ---
History of Present Illness Admission Date/PCP: 01/31/19 18:58 Patient complains of: RUQ pains History of Present Illness: JUANIS FOX JR is a 33 year old malewith history of asthma started complaining of RUQ pains 3 days ago after a possible fatty meal. Pains persistent and went to an urgent care and had an ultrasound of the gallbladder which showed stones. She came to the ED tonight because of persistent right upper quadrant pains. She had an ultrasound of the gallbladder again which showed small gallstones with sludge and slightly thickened gallbladder wall. She denies any fever no chills no nausea no vomiting. Past Medical History Pulmonary Medical History: Reports: Asthma Social History Lives with: Family Smoking Status: Never Smoker Electronic Cigarette use?: No Frequency of Alcohol Use: Social Family History Family History: Reviewed & Not Pertinent Parental Family History Reviewed: Yes Children Family History Reviewed: No Sibling(s) Family History Reviewed.: Yes - A brother and a sister have diabetes mellitus Medication/Allergy Home Medications: Albuterol Sulfate [Ventolin HFA] 1 puff IH Q4HP PRN #17 gm 01/24/13 Loratadine [Claritin 10 Mg Tablet] 10 mg PO DAILY #30 tablet 01/24/13 Prednisone [Deltasone 10 mg Tablet] 10 mg PO ASDIR PRN #21 tablet 01/24/13 Albuterol Sulfate [Ventolin HFA MDI 18 GM] 2 puff IH Q6HP PRN #1 mdi 04/29/14 Prednisone [Deltasone 20 mg Tablet] 20 mg PO QAM #25 tablet 04/29/14 Albuterol Sulfate [Proair HFA Inhalation Aerosol 8.5 gm MDI] 2 puff IH Q3HP PRN #1 hfa.aer.ad 03/28/16 Azithromycin [Zithromax 250 mg Tablet] 250 mg PO ASDIR PRN #6 tablet 07/24/16 D-Methorphan Hb/Prometh HCl [Promethazine-Dm Syrup] 5 ml PO Q8 PRN #120 ml 07/24/16 Prednisone 60 mg PO DAILY #15 tablet 07/24/16 Albuterol Sulfate [Proair HFA Inhalation Aerosol 8.5 gm MDI] 2 puff IH Q4H PRN #1 mdi 12/28/18 Prednisone [Deltasone] 20 mg PO ASDIR PRN #10 tablet 12/28/18 Allergies/Adverse Reactions: prednisone Adverse Reaction (Verified 01/31/19 14:51) Migraine Review of Systems Constitutional: PRESENT: as per HPI Gastrointestinal: PRESENT: abdominal pain Physical Exam Vital Signs: Temp Pulse Resp BP Pulse Ox 98.4 F 92 16 148/78 H 96 01/31/19 13:27 01/31/19 13:27 01/31/19 13:27 01/31/19 13:27 01/31/19 13:27 Intake & Output 01/30/19 01/31/19 02/01/19 06:59 06:59 06:59 Weight 152.7 kg General appearance: PRESENT: obese Head exam: PRESENT: atraumatic Eye exam: PRESENT: conjunctival injection Mouth exam: PRESENT: moist Neck exam: PRESENT: full ROM Respiratory exam: PRESENT: clear to auscultation [place] Cardiovascular exam: PRESENT: RRR Pulses: PRESENT: normal radial pulses Vascular exam: PRESENT: normal capillary refill GI/Abdominal exam: PRESENT: soft - Tenderness of the right upper quadrant Rectal exam: PRESENT: deferred Extremities exam: PRESENT: full ROM Musculoskeletal exam: PRESENT: ambulatory Neurological exam: PRESENT: alert, oriented to person, oriented to place, oriented to time, oriented to situation Psychiatric exam: PRESENT: appropriate affect Skin exam: PRESENT: normal color, warm Results Laboratory Results: 01/31/19 15:00 01/31/19 15:00 01/31/19 01/31/19 01/31/19 15:00 15:00 15:00 WBC 9.6 RBC 5.65 H Hgb 15.6 Hct 46.7 MCV 83 MCH 27.6 MCHC 33.5 RDW 14.5 H Plt Count 228 Seg Neutrophils % 78.8 H Sodium 141.1 Potassium 3.6 Chloride 104 Carbon Dioxide 27 Anion Gap 10 BUN 12 Creatinine 1.24 Est GFR ( Amer) > 60 Glucose 90 Calcium 9.5 Total Bilirubin 0.6 AST 25 Alkaline Phosphatase 72 Total Protein 7.6 Albumin 4.0 Lipase 313.9 H Urine Color YELLOW Urine Appearance CLEAR Urine pH 6.0 Ur Specific [place] 1.025 Urine Protein NEGATIVE Urine Glucose (UA) NEGATIVE Urine Ketones NEGATIVE Urine Blood NEGATIVE Urine RBC (Auto) 0 Impressions: Abdomen Ultrasound 01/31/19 14:55 IMPRESSION: Small stones and gallbladder sludge. The wall is at the upper limits of normal in thickness. There is a positive sonographic Abraham's sign. No pericholecystic fluid. Assessment & Plan - Diagnosis (1) Cholelithiasis Is this a current diagnosis for this admission?: Yes (2) Cholecystitis Is this a current diagnosis for this admission?: Yes (3) Bronchial asthma Qualifiers: Asthma severity: mild Is this a current diagnosis for this admission?: Yes - Time Time Spent: 30 to 50 Minutes - Inpatient Certification Medical Necessity: Need For IV Fluids, Need for Pain Control, Need for IV Antibiotics, Need for Surgery - Plan Summary Plan Summary: 33-year-old male with history of mild bronchial asthma on pro-air as needed complaining of right upper quadrant pains for the past 3 to 4days. Had an ultrasound of the gallbladder today which showed gallstones and mix mill tender in the right upper quadrant. Plans: We will keep n.p.o. when started on IV antibiotics and hydrate. For laparoscopic cholecystectomy tomorrow by Dr. Cavanaugh Will or order albuterol every 6 hours as needed since he feels he is been coughing more tonight
[2019-01-31] MEDS ORDERED: ALBUTEROL SULFATE 0.083% NEB 2.5 MG/3 ML AMPUL NEB PRN (19:23)
--- NOTE | 2019-01-31 19:29 | RADIOLOGY REPORT (SQ) ---
EXAM DESCRIPTION: CHEST SINGLE VIEW COMPLETED DATE/TIME: 01/31/2019 7:19 pm REASON FOR STUDY: Bronchial asthma COMPARISON: 12/27/2018. FINDINGS: Single-view chest AP portable upright. No acute findings. Stable chest. Stable cardiomediastinal silhouette with clear lungs. TECHNICAL DOCUMENTATION: JOB ID: [id number] Reading location - IP/workstation name: [email or web address]
[2019-01-31] MEDS ORDERED: PIPERACILLIN/TAZOBACTAM 3.375 GM VIAL IV ONE (19:45)
[2019-01-31] MEDS: DEXTROSE 5%-LACTATED RINGERS 1,000 ML IV PRN (20:14)
[2019-02-01] MEDS: DEXTROSE 5%-LACTATED RINGERS 1,000 ML IV PRN ×2 (04:07→13:30)
[2019-02-01] MEDS ORDERED: MIDAZOLAM 2 MG/2 ML INJ ONE (08:16)
[2019-02-01] MEDS ORDERED: DEXAMETHASONE SOD PHOSPHATE INJ 4 MG/1 ML VIAL ONE (08:16)
[2019-02-01] MEDS ORDERED: FENTANYL CITRATE INJ/PF 100 MCG/2 ML AMPUL ONE (08:16)
[2019-02-01] MEDS ORDERED: ONDANSETRON HCL INJ/PF 4 MG/2 ML SDV ONE (08:16)
[2019-02-01] MEDS ORDERED: HYDROMORPHONE HCL INJ/PF 2 MG/ML AMPULE ONE (08:16)
[2019-02-01] MEDS ORDERED: PROPOFOL INJ 200 MG/20 ML VIAL IV ONE (08:17)
[2019-02-01] MEDS ORDERED: BUPIVACAINE HCL 0.25 % INJ/PF (2.5 MG/1 ML) 30 ML VIAL ONE (08:33)
[2019-02-01] MEDS ORDERED: IPRATROPIUM/ALBUTEROL 0.5-2.5 MG/3 ML AMPUL NEB ONE (08:36)
[2019-02-01] MEDS ORDERED: DEXAMETHASONE SOD PHOS INJ 10 MG/1 ML VIAL ONE (08:40)
[2019-02-01] MEDS ORDERED: CEFAZOLIN INJ 1 GM VIAL ONE (08:50)
--- NOTE | 2019-02-01 08:55 | PDOC PROGRESS REPORT ---
Subjective Progress Note for:: 02/01/19 Subjective:: Patient feels better, anxious about surgery. Patient has a history of asthma, chronic cough, and was started on a Solu-Medrol pack several days ago. Reason For Visit: CHOLELITHIASIS, ACUTE CHOLECYSTITIS Physical Exam Vital Signs: Temp Pulse Resp BP Pulse Ox 100.9 F H 108 H 20 149/97 H 96 02/01/19 08:04 02/01/19 08:04 02/01/19 08:04 02/01/19 08:04 02/01/19 08:04 Intake & Output 01/31/19 02/01/19 02/02/19 06:59 06:59 06:59 Intake Total 1000 Output Total 600 Balance 400 Weight 151.1 kg General appearance: PRESENT: no acute distress, other - Patient examined in holding area, no acute distress. Respiratory exam: PRESENT: other - Coarse breath sounds with no active wheezing. GI/Abdominal exam: PRESENT: other - Mildly tender right upper quadrant to deep palpation. Results Laboratory Results: 01/31/19 15:00 01/31/19 15:00 01/31/19 01/31/19 01/31/19 15:00 15:00 15:00 WBC 9.6 RBC 5.65 H Hgb 15.6 Hct 46.7 MCV 83 MCH 27.6 MCHC 33.5 RDW 14.5 H Plt Count 228 Seg Neutrophils % 78.8 H Sodium 141.1 Potassium 3.6 Chloride 104 Carbon Dioxide 27 Anion Gap 10 BUN 12 Creatinine 1.24 Est GFR ( Amer) > 60 Glucose 90 Calcium 9.5 Total Bilirubin 0.6 AST 25 Alkaline Phosphatase 72 Total Protein 7.6 Albumin 4.0 Lipase 313.9 H Urine Color YELLOW Urine Appearance CLEAR Urine pH 6.0 Ur Specific [place] 1.025 Urine Protein NEGATIVE Urine Glucose (UA) NEGATIVE Urine Ketones NEGATIVE Urine Blood NEGATIVE Urine RBC (Auto) 0 Impressions: Abdomen Ultrasound 01/31/19 14:55 IMPRESSION: Small stones and gallbladder sludge. The wall is at the upper limits of normal in thickness. There is a positive sonographic Abraham's sign. No pericholecystic fluid. Assessment & Plan - Diagnosis (1) Cholelithiasis Is this a current diagnosis for this admission?: Yes Plan: Impression: Symptomatic cholelithiasis in a patient with multiple gallstones, currently set up for interval cholecystectomy this morning Recommendations: 1. I discussed the mechanics of the planned operation, laparoscopic, possible conversion to open cholecystectomy with patient. Risks of bleeding, bile duct injury, need for additional surgery were all discussed with patient. He expresses his understanding and agrees to proceed. 2. Patient being treated with bronchodilator at bedside this morning under the direction of the anesthesiologist. (2) Bronchial asthma Qualifiers: Asthma severity: mild Is this a current diagnosis for this admission?: Yes - Time Time Spent with patient: 15-24 minutes Medications reviewed and adjusted accordingly: Yes Anticipated discharge: Home
[2019-02-01] MEDS ORDERED: FENTANYL CITRATE INJ/PF 100 MCG/2 ML AMPUL IV PRN ×3 (09:21)
[2019-02-01] MEDS ORDERED: PROMETHAZINE HCL INJ 25 MG/1 ML VIAL IV PRN (09:21)
[2019-02-01] MEDS ORDERED: MEPERIDINE HCL/PF INJ 25 MG/1 ML DISP.SYRIN IV PRN (09:21)
[2019-02-01] MEDS ORDERED: MORPHINE SULFATE 10 MG/ML INJ IV PRN (09:21)
[2019-02-01] MEDS ORDERED: DIPHENHYDRAMINE HCL 50 MG/ML VIAL IV PRN (09:21)
[2019-02-01] MEDS ORDERED: ROCURONIUM BROMIDE INJ 50 MG/5 ML VIAL IV ONE (10:08)
[2019-02-01] MEDS ORDERED: SUCCINYLCHOLINE CHLORIDE INJ 200 MG/10 ML VIAL ONE (10:08)
[2019-02-01] MEDS ORDERED: KETOROLAC TROMETHAMINE INJ/PF 30 MG/1 ML SDV IV PRN (10:19)
[2019-02-01] MEDS ORDERED: KETOROLAC TROMETHAMINE 10 MG TABLET PO PRN (10:19)
[2019-02-01] MEDS ORDERED: ONDANSETRON HCL INJ/PF 4 MG/2 ML SDV IV PRN (10:19)
--- NOTE | 2019-02-01 10:27 | Operative Report ---
Operative Report DATE OF SURGERY: 02/01/19 PREOPERATIVE DIAGNOSIS: 1. Symptomatic cholelithiasis with cholecystitis. 2. Morbid obesity. 3. New onset asthma POSTOPERATIVE DIAGNOSIS: Same OPERATION: 1. Laparoscopic lysis of adhesions. 2. Laparoscopic cholecystectomy SURGEON: NELLIE CHU ANESTHESIA: GA TISSUE REMOVED OR ALTERED: See below COMPLICATIONS: None ESTIMATED BLOOD LOSS: 35 cc INTRAOPERATIVE FINDINGS: See below PROCEDURE: After obtaining informed consent, the patient was taken to the operating room. General Anesthesia was induced; the arms were extended, and the abdomen was exposed, and prepped and draped in a sterile fashion. Instrumentation was set up for laparoscopic cholecystectomy. Surgical plan and surgical timeout were conducted. A vertical incision was made above the umbilicus, and a verres needle was inserted uneventfully into the peritoneal cavity. Pneumoperitoneum was established. The verres needle was removed and a 5 mm trocar was inserted and a 5 mm flexible laparoscope was inserted. Visualization of the peritoneal cavity confirmed safe uneventful entry. Under direct visualization 3 additional 5 mm ports were established, one in the subxiphoid position and second in the subcostal position. Findings were significant for multiple adhesions between the gallbladder, right lobe of the liver, gastro-duodenal area and the proximal transverse colon. All these adhesions were taken down using a hook cautery and gentle suction tract ion. Due to patient's body habitus, and limitations of the operating bed, the degree of left lateral tilt provided was limited. A grasper was placed on the fundus of the gallbladder and the gallbladder is elevated over the right surface of the liver; a second grasper was used to grasp the infundibulum of the gallbladder. We began to take down the redundant fatty tissue around the infundibulum but due to poor exposure, despite placing 1/5 port in the midline between the subxiphoid and umbilical ports, visualization was difficult. Therefore we took the gallbladder off of the inferior surface of the right lobe of the liver from a top-down approach. This proceeded uneventfully until we encountered some arterial bleeding consistent with the cystic artery. We suction the area out, and initially clipped twice proximally a posterior branch of the cystic artery. By now the initial bleeding site had abated. We continued to dissect the infundibulum clean, and had the cystic duct exposed in a circumferential fashion, with the gallbladder suspended solely by the duct. The duct was clipped twice proximally once distally and divided with scissors.. Photos were taken. Graspers were repositioned and the gallbladder was removed uneventfully from the abdominal cavity through the super umbilical port site incision. The specimen was examined, then passed off to pathology for permanent analysis. We returned to the peritoneal cavity, checked for bleeding, and there was none. We did however placed 2 additional clips for total of 4 clips to stabilize the cystic artery and its respective branches. The third clip was applied to the initial bleeding site previously described above. The fourth clip was placed on the posterior branch proximally. At this point there remained no further bleeding and we felt the conditions were under control. There was no evidence of bile leak, and final photos obtained. We Confirmed satisfactory placement of clips on cystic duct and cystic artery were secured . At this point we felt the operation was complete. We did not feel a drain was indicated. The patient was leveled out and pneumoperitoneum evacuated. The subcutaneous tissue was then anesthetized with quarter percent Marcaine Sponge and needle counts are correct. All ports removed under direct visualization pneumoperitoneum evacuated, and 5 mm port wounds closed with 3-0 Vicryl suture, benzoin and Steri-Strips. The patient was extubated, and taken to the recovery room in stable condition.
[2019-02-01] MEDS ORDERED: KETOROLAC TROMETHAMINE INJ/PF 30 MG/1 ML SDV ONE (10:28)
[2019-02-01] MEDS ORDERED: ACETAMINOPHEN 1,000 MG/100 ML RTUPB IV ONE (10:28)
[2019-02-01] MEDS: ACETAMINOPHEN INJ/PF 1000 MG/100 ML SDV IV SCH ×3 (10:45→23:11)
[2019-02-02] MEDS: ACETAMINOPHEN INJ/PF 1000 MG/100 ML SDV IV SCH ×2 (06:31→12:34)
[2019-02-02 08:29] VITALS: BP 137/79
--- NOTE | 2019-02-04 15:49 | PDOC DISCHARGE SUMMARY ---
General - Admit/Disc Date/PCP Admission Date/Primary Care Provider: 01/31/19 18:58 Discharge Date: 02/02/19 - Discharge Diagnosis Final Diagnosis: Cholelithiasis, acute cholecystitis - Assessment Summary: 33-year-old male with but 3 to 4 days of right upper quadrant pains. Ultrasound showed gallstones with slightly thickened wall. Patient underwent laparoscopic cholecystectomy on 02/01/[address] Cavanaugh. Postoperatively he did very well and discharged improved on 02/02/2019. Patient to be followed up in the surgical clinic in 2 weeks. - Additional Information Resuscitation Status: Full Code Discharge Diet: As Tolerated Discharge Activity: Activity As Tolerated, Balance Activity w/Rest, No Lifting Over 10 Pounds, No Lifting/Push/Pulling, Slowly Increase Activity, No tub bath, Walk Frequently Referrals: [facility] [Provider Group] - 02/18/19 1:00 pm (02/03 PATIENT NOTIFIED OF APPT. DATE AND TIME @ 1321 ) Home Medications: Albuterol Sulfate [Proair HFA Inhalation Aerosol 8.5 gm MDI] 2 puff IH Q4HP PRN 02/01/19 History of Present Illiness History of Present Illness: JUANIS FOX JR is a 33 year old malewith history of asthma started complaining of RUQ pains 3 days ago after a possible fatty meal. Pains persistent and went to an urgent care and had an ultrasound of the gallbladder which showed stones. She came to the ED tonight because of persistent right upper quadrant pains. She had an ultrasound of the gallbladder again which showed small gallstones with sludge and slightly thickened gallbladder wall. She denies any fever no chills no nausea no vomiting. Physical Exam Vital Signs: Temp Pulse Resp BP Pulse Ox 98.5 F 60 20 137/79 H 97 02/02/19 07:39 02/02/19 07:39 02/02/19 07:39 02/02/19 07:39 02/02/19 07:39 Results Laboratory Results: WBC 9.6 10^3/uL (4.0-10.5) 01/31/19 15:00 RBC 5.65 10^6/uL (4.35-5.55) H 01/31/19 15:00 Hgb 15.6 g/dL (13.5-17.0) 01/31/19 15:00 Hct 46.7 % (37.9-51.0) 01/31/19 15:00 MCV 83 fl (80-97) 01/31/19 15:00 MCH 27.6 pg (27.0-33.4) 01/31/19 15:00 MCHC 33.5 g/dL (32.0-36.0) 01/31/19 15:00 RDW 14.5 % (11.5-14.0) H 01/31/19 15:00 Plt Count 228 10^3/uL (150-450) 01/31/19 15:00 Lymph % (Auto) 14.4 % (13-45) 01/31/19 15:00 Blair % (Auto) 5.2 % (3-13) 01/31/19 15:00 Eos % (Auto) 1.4 % (0-6) 01/31/19 15:00 Baso % (Auto) 0.2 % (0-2) 01/31/19 15:00 Absolute Neuts (auto) 7.6 10^3/uL (1.7-8.2) 01/31/19 15:00 Absolute Lymphs (auto) 1.4 10^3/uL (0.5-4.7) 01/31/19 15:00 Absolute Monos (auto) 0.5 10^3/uL (0.1-1.4) 01/31/19 15:00 Absolute Eos (auto) 0.1 10^3/uL (0.0-0.6) 01/31/19 15:00 Absolute Basos (auto) 0.0 10^3/uL (0.0-0.2) 01/31/19 15:00 Seg Neutrophils % 78.8 % (42-78) H 01/31/19 15:00 Sodium 141.1 mmol/L (137-145) 01/31/19 15:00 Potassium 3.6 mmol/L (3.6-5.0) 01/31/19 15:00 Chloride 104 mmol/L (98-107) 01/31/19 15:00 Carbon Dioxide 27 mmol/L (22-30) 01/31/19 15:00 Anion Gap 10 (5-19) 01/31/19 15:00 BUN 12 mg/dL (7-20) 01/31/19 15:00 Creatinine 1.24 mg/dL (0.52-1.25) 01/31/19 15:00 Est GFR ( Amer) > 60 (>60) 01/31/19 15:00 Est GFR (MDRD) Non-Af > 60 (>60) 01/31/19 15:00 Glucose 90 mg/dL (75-110) 01/31/19 15:00 Calcium 9.5 mg/dL (8.4-10.2) 01/31/19 15:00 Total Bilirubin 0.6 mg/dL (0.2-1.3) 01/31/19 15:00 Direct Bilirubin 0.2 mg/dL (0.0-0.4) 01/31/19 15:00 Neonat Total Bilirubin Not Reportable 01/31/19 15:00 Neonat Direct Bilirubin Not Reportable 01/31/19 15:00 Neonat Indirect Bili Not Reportable 01/31/19 15:00 AST 25 U/L (17-59) 01/31/19 15:00 ALT 20 U/L (<50) 01/31/19 15:00 Alkaline Phosphatase 72 U/L (38-126) 01/31/19 15:00 Total Protein 7.6 g/dL (6.3-8.2) 01/31/19 15:00 Albumin 4.0 g/dL (3.5-5.0) 01/31/19 15:00 Lipase 313.9 U/L (23-300) H 01/31/19 15:00 Urine Color YELLOW 01/31/19 15:00 Urine Appearance CLEAR 01/31/19 15:00 Urine pH 6.0 (5.0-9.0) 01/31/19 15:00 Ur Specific Aiken 1.025 01/31/19 15:00 Urine Protein NEGATIVE mg/dL (NEGATIVE) 01/31/19 15:00 Urine Glucose (UA) NEGATIVE mg/dL (NEGATIVE) 01/31/19 15:00 Urine Ketones NEGATIVE mg/dL (NEGATIVE) 01/31/19 15:00 Urine Blood NEGATIVE (NEGATIVE) 01/31/19 15:00 Urine Nitrite (Reflex) NEGATIVE (NEGATIVE) 01/31/19 15:00 Urine Bilirubin NEGATIVE (NEGATIVE) 01/31/19 15:00 Urine Urobilinogen 2.0 mg/dL (<2.0) H 01/31/19 15:00 Leukocyte Esterase Rfl NEGATIVE (NEGATIVE) 01/31/19 15:00 Urine RBC (Auto) 0 /HPF 01/31/19 15:00 Urine WBC (Reflex) < 1 /HPF 01/31/19 15:00 Squamous Epi Cells Auto 3 /HPF 01/31/19 15:00 Urine Mucus (Auto) RARE /LPF 01/31/19 15:00 Urine Ascorbic Acid NEGATIVE (NEGATIVE) 01/31/19 15:00 Impressions: Abdomen Ultrasound 01/31/19 14:55 IMPRESSION: Small stones and gallbladder sludge. The wall is at the upper limits of normal in thickness. There is a positive sonographic Abraham's sign. No pericholecystic fluid.
== END 2019-02-02 12:33 | disposition home or self-care (01) ==
LOC: ER 13:22 → EH 18:58 → 5 21:30
PROVIDERS: ADMIT Surgery; ATTEND Surgery
PROC: 0FT44ZZ Resection of Gallbladder, Percutaneous Endoscopic Approach (ICD-10-PCS; principal; 2019-02-01 08:30)
DX: K81.1 Chronic cholecystitis (principal); K66.0 Peritoneal adhesions (postprocedural) (postinfection); J45.998 Other asthma; R05 Cough; E66.01 Morbid (severe) obesity due to excess calories; Z79.899 Other long term (current) drug therapy
CPT/HCPCS: 94640; 99285; 96375; 96365; 36415; 83690; 85025; 80053; 81001; 88304 ×2; 71045; 76705; 00790; 47562; 49329; G0378 ×4; J2250; J0690; J3490 ×2; J1100 ×2; J3010; J1885; J2270; J1170 ×2; J0330; J2405 ×2; J7121 ×2; J2704; J7620; J0131 ×2; 790; J2543

== ENCOUNTER 2019-02-04 10:39 | Inpatient (IN) | payer BC ==
[2019-02-04] MEDS ORDERED: ACETAMINOPHEN 325 MG TABLET PO ONE (11:21)
[2019-02-04] MEDS ORDERED: MORPHINE SULFATE 10 MG/ML INJ IV ONE (11:22)
[2019-02-04] MEDS ORDERED: IPRATROPIUM/ALBUTEROL 0.5-2.5 MG/3 ML AMPUL NEB ONE (11:23)
--- NOTE | 2019-02-04 11:26 | ER Document Report ---
ED Respiratory Problem - General Chief Complaint: Shortness Of Breath Stated Complaint: RESPIRATORY DISTRESS Time Seen by Provider: 02/04/19 11:07 Information source: Patient Notes: Mr. Thomas is a 33 yo m w/ PMH asthma presenting to the ED for shortness of breath. Patient states that he had a cholecystectomy this past Sunday. He came to the hospital Sunday evening and was discharged Sunday morning. He denies any complications with the cholecystectomy. He states that when he was discharged on Sunday, he noticed a small lump to the right posterior ankle, not calf. He was seen at urgent care earlier today and given this concern, they sent him over for evaluation for possible PE. Patient was hypoxic at their facility to 85% on room air. Was given 2 nebs but is unclear if they are albuterol or DuoNeb's. Patient endorses chills, cough productive of brownish sputum. He also adds that both his daughter and his significant other have been sick with URI symptoms over the past few days and they stayed with him the entire time while he was hospitalized. His chest pain is only present with coughing. No nausea, vomiting or diarrhea. He denies any abdominal pain, increased urinary frequency or dysuria. TRAVEL OUTSIDE OF THE [place] IN LAST 30 DAYS: No - Related Data Allergies/Adverse Reactions: prednisone Adverse Reaction (Verified 01/31/19 14:51) Migraine Past Medical History - Social History Smoking Status: Never Smoker Family History: Reviewed & Not Pertinent Patient has suicidal ideation: No Patient has homicidal ideation: No Pulmonary Medical History: Reports: Hx Asthma Renal/ Medical History: Denies: Hx Peritoneal Dialysis Psychiatric Medical History: Denies: Hx Depression - Immunizations Hx Diphtheria, Pertussis, Tetanus Vaccination: Yes Review of Systems - Review of Systems Constitutional: See HPI EENT: No symptoms reported Cardiovascular: No symptoms reported Respiratory: See HPI Gastrointestinal: No symptoms reported Genitourinary: No symptoms reported Male Genitourinary: No symptoms reported Musculoskeletal: No symptoms reported Skin: No symptoms reported Hematologic/Lymphatic: No symptoms reported Neurological/Psychological: No symptoms reported Physical Exam - Vital signs Vitals: Temp Pulse Resp BP Pulse Ox 98.2 F 94 20 132/67 H 96 02/04/19 10:43 02/04/19 10:43 02/04/19 10:43 02/04/19 10:43 02/04/19 10:43 Interpretation: Hypoxic, Tachypneic, Febrile - General General appearance: Appears well, Alert - HEENT Head: Normocephalic, Atraumatic Eyes: Normal Pupils: PERRL - Respiratory Respiratory status: Labored, Tachypnea Chest status: Nontender Breath sounds: Decreased air movement - Decreased air movement throughout., Nonproductive cough, Rales - Crackles/rales in the right lower lobe, Wheezing - Bilateral expiratory wheezes in lower lobes. Chest palpation: Normal - Cardiovascular Rhythm: Regular Heart sounds: Normal auscultation Murmur: No - Abdominal Inspection: Normal Distension: No distension Bowel sounds: Normal Tenderness: Nontender Organomegaly: No organomegaly - Back Back: Normal, Nontender - Extremities General upper extremity: Normal inspection, Nontender, Normal color, Normal ROM, Normal temperature General lower extremity: Normal inspection, Nontender, Normal color, Normal ROM, Normal temperature, Normal weight bearing. No: Kirsten's sign - Neurological Neuro grossly intact: Yes Cognition: Normal Orientation: AAOx4 Larned Coma Scale Eye Opening: Spontaneous Larned Coma Scale Verbal: Oriented Charles Coma Scale Motor: Obeys Commands Charles Coma Scale Total: 15 Speech: Normal Motor strength normal: LUE, RUE, LLE, RLE Sensory: Normal - Psychological Associated symptoms: Normal affect, Normal mood - Skin Skin Temperature: Warm Skin Moisture: Dry Skin Color: Normal Course - Re-evaluation Re-evalutation: Patient is generally well-appearing and nontoxic. Initial vitals notable for hypoxia, tachycardia and felt warm to touch therefore temperature was rechecked upon my evaluation he was noted to be febrile to 101. Diagnosis includes URI, pneumonia, asthma exacerbation, PE (less likely) Patient is an otherwise healthy man. However his hypoxia today was both witnessed at urgent care and then here in the ED. Per nursing staff, use 88% on room air but improved significantly with nasal cannula. Given the recent surgery, unable to obtain d-dimer as the patient is considered high risk, not low risk. In addition, he was just recently intubated for the procedure therefore it is possible that he developed a pneumonia and with no focal findings on examination, likely right lower lobe. Labs and x-ray ordered. Patient also will be given Tylenol as he felt warm to touch so I rechecked his temperature and he was truly febrile to 101. Patient will also be given a DuoNeb. 02/04/19 12:58 CBC does not show significant leukocytosis or left shift. H&H is stable. CMP within normal limits. No significant lactic acidosis. Chest x-ray is negative for any acute process. However this does not explain the patient's level of hypoxia today given that his wheezing is only minimal. Given the recent surgery, unable to PERC. Will obtain CTA PE. However the patient does feel somewhat better after Tylenol, and DuoNeb. 02/04/19 13:01 02/04/19 14:25 CTA chest shows patchy bilateral airspace disease most consistent with multifocal pneumonia. No evidence of pulmonary emboli. Given the patient's need for oxygen with new hypoxia, will admit to the hospital for further care. Given the fact that the patient was recently hospitalized although he does not have significant leukocytosis or lactic acidosis, patient will be given vanc omycin and Zosyn. Discussed with regarding admission. Recommended discussion w/ Dr. Kathleen. - Vital Signs Vital signs: Temp Pulse Resp BP Pulse Ox 99.9 F 94 16 124/108 H 98 02/04/19 14:11 02/04/19 11:12 02/04/19 13:02 02/04/19 13:02 02/04/19 13:02 - Laboratory Result Diagrams: 02/04/19 11:05 02/04/19 11:57 Laboratory results interpreted by me: 02/04/19 02/04/19 11:05 11:57 RDW 14.1 H Creatinine 1.37 H Discharge - Discharge Clinical Impression: Multifocal pneumonia, Hypoxia Condition: Good Disposition: ADMITTED INPATIENT Admitting Provider: Frannie (Hospitalist) Unit Admitted: Medical Floor
[2019-02-04 11:37] LABS: ABSOLUTE BASOPHILS # (AUTO) 0.1 10^3/uL (0.0-0.2); ABSOLUTE LYMPHOCYTES (AUTO) 1.3 10^3/uL (0.5-4.7); ABSOLUTE MONOCYTES (AUTO) 0.9 10^3/uL (0.1-1.4); ABSOLUTE NEUT (AUTO) 7.4 10^3/uL (1.7-8.2); BASOPHILS % (AUTO) 0.5 % (0-2); EOSINOPHILS % (AUTO) 0.4 % (0-6); HEMATOCRIT 45.3 % (37.9-51.0); HEMOGLOBIN 15.2 g/dL (13.5-17.0); LYMPHOCYTES % (AUTO) 13.3 % (13-45); MEAN CORPUSCULAR HEMOGLOBIN 27.8 pg (27.0-33.4); MEAN CORPUSCULAR HGB CONC 33.6 g/dL (32.0-36.0); MEAN CORPUSCULAR VOLUME 83 fl (80-97); PLATELET COUNT 199 10^3/uL (150-450); RED BLOOD COUNT 5.47 10^6/uL (4.35-5.55); RED CELL DISTRIBUTION WIDTH 14.1 % (11.5-14.0); SEGMENTED NEUTROPHILS % (AUTO) 76.8 % (42-78); TOTAL CELLS COUNTED % (AUTO) 100 %; WHITE BLOOD COUNT 9.7 10^3/uL (4.0-10.5)
--- NOTE | 2019-02-04 12:00 | RADIOLOGY REPORT (SQ) ---
EXAM DESCRIPTION: CHEST 2 VIEWS COMPLETED DATE/TIME: 02/04/2019 11:49 am REASON FOR STUDY: cough, crackes r base COMPARISON: 01/31/2019 EXAM PARAMETERS: NUMBER OF VIEWS: two views TECHNIQUE: Digital Frontal and Lateral radiographic views of the chest acquired. RADIATION DOSE: NA LIMITATIONS: none FINDINGS: LUNGS AND PLEURA: No opacities, masses or pneumothorax. No pleural effusion. MEDIASTINUM AND HILAR STRUCTURES: No masses or contour abnormalities. HEART AND VASCULAR STRUCTURES: Heart normal size. No evidence for failure. BONES: No acute findings. HARDWARE: None in the chest. OTHER: No other significant finding. IMPRESSION: NO ACUTE RADIOGRAPHIC FINDING IN THE CHEST. TECHNICAL DOCUMENTATION: JOB ID: [id number] [employer]- All Rights Reserved Reading location - IP/workstation name: [email or web address]
[2019-02-04 12:25] LABS: ALKALINE PHOSPHATASE 52 U/L (38-126); ANION GAP 11 (5-19); ASPARTATE AMINO TRANSFERASE 48 U/L (17-59); BILIRUBIN,DIRECT 0.1 mg/dL (0.0-0.4); BILIRUBIN,TOTAL 0.9 mg/dL (0.2-1.3); BLOOD UREA NITROGEN 16 mg/dL (7-20); CALCIUM 8.9 mg/dL (8.4-10.2); CARBON DIOXIDE 28 mmol/L (22-30); CHLORIDE 101 mmol/L (98-107); GLUCOSE 92 mg/dL (75-110); POTASSIUM 3.6 mmol/L (3.6-5.0); TOTAL PROTEIN 7.5 g/dL (6.3-8.2)
[2019-02-04] MEDS ORDERED: NORMAL SALINE 1000 ML 1,000 ML IV ONE (12:57)
--- NOTE | 2019-02-04 13:56 | RADIOLOGY REPORT (SQ) ---
EXAM DESCRIPTION: CTA CHEST COMPLETED DATE/TIME: 02/04/2019 1:38 pm REASON FOR STUDY: recent surg, hypoxia COMPARISON: Chest x-ray done earlier the same day. TECHNIQUE: CT scan of the chest performed using helical scanning technique with dynamic intravenous contrast injection. Images reviewed with lung, soft tissue and bone windows. Reconstructed coronal and sagittal MPR images reviewed. Additional 3 dimensional post-processing performed to develop Maximal Intensity Projection images (WI P). All images stored on PACS. All CT scanners at this facility use dose modulation, iterative reconstruction, and/or weight based d osing when appropriate to reduce radiation dose to as low as reasonably achievable (ALARA). [facility]: Dose Right [facility]: CareDose [facility]: Dose Right [facility]: Teradose 4D [facility]: [facility] CONTRAST TYPE AND DOSE: contrast/concentration: Isovue 350.00 mg/ml; Total Contrast Delivered: 149.0 ml; Total Saline Delivered: 108.0 ml Contrast bolus optimized for the pulmonary arteries. Not diagnostic for the aorta. RENAL FUNCTION: BUN 16, creatinine 1.37 RADIATION DOSE: CT Rad equipment meets quality standard of care and radiation dose reduction techniq ues were employed. CTDIvol: 19.8 - 40.3 mGy. DLP: 3085 mGy-cm. . LIMITATIONS: None. FINDINGS: LUNGS AND PLEURA: There is nodular infiltrate in the posterior right upper lobe. Most lik no pneumonia. There is patchy infiltrate in the superior segment of the left lower lobe. There is patchy infiltrate in the right lung base. AORTA AND GREAT VESSELS: No aneurysm. Contrast bolus not optimized for the aorta. HEART: No pericardial effusion. No significant coronary artery calcifications. PULMONARY ARTERIES: No emboli visualized in the main pulmonary arteries or the segmental branches. HILAR AND MEDIASTINAL STRUCTURES: No identified masses or abnormal nodes. HARDWARE: None in the chest. UPPER ABDOMEN: No significant findings. Limited exam. THYROID AND OTHER SOFT TISSUES: No masses. No adenopathy. BONES: No acute or significant finding. 3D MIPS: Confirm above findings. OTHER: No other significant finding. IMPRESSION: Patchy bilateral airspace disease most consistent with multifocal pneumonia. No pulmona ry emboli. COMMENT: Quality ID # [id number]: Final reports with documentation of one or more dose reduction techniques (e.g., Automated exposure control, adjustment of the mA and/or kV according to patient size, use of iterative reconstruction technique) TECHNICAL DOCUMENTATION: JOB ID: [id number] [employer]- All Rights Reserved Reading location - IP/workstation name: [email or web address]
[2019-02-04] MEDS ORDERED: PIPERACILLIN/TAZOBACTAM 3.375 GM VIAL IV ONE (14:14)
[2019-02-04] MEDS ORDERED: VANCOMYCIN HCL INJ 1000 MG VIAL IV ONE (14:14)
[2019-02-04] MEDS ORDERED: ONDANSETRON HCL INJ/PF 4 MG/2 ML SDV IV PRN (15:40)
[2019-02-04] MEDS ORDERED: ACETAMINOPHEN 325 MG TABLET PO PRN (15:43)
--- NOTE | 2019-02-04 16:00 | PDOC H&P ---
History of Present Illness Admission Date/PCP: 02/04/19 14:37 Patient complains of: Hypoxia, cough History of Present Illness: JUANIS FOX JR is a 33 year old male with a history of asthma and recent laparoscopic cholecystectomy done for cholelithiasis/cholecystitis, who presents today from urgent care clinic for evaluation of hypoxia. Patient states he has been experiencing cough which is intermittently productive of brownish sputum for almost a month now. He was recently hospitalized here at [facility] about 3-4 days ago and underwent a laparoscopic cholecystectomy with adhesion lysis for treatment of cholecystitis/cholelithiasis. Patient states abdominal pain has been improving somewhat since then. He went to the urgent care clinic where his primary care physician is for referral to a lung specialist for evaluation of asthma he was noted to be hypoxic in the 80s. Patient endorses only mild shortness of breath but does say that he has frequent cough. Denies any chest pain, nausea vomiting. Patient denies any fevers or sweats despite being re ported to be febrile. I was informed that patient desatted into the 80s on room air by the ER physician. Past Medical History Pulmonary Medical History: Reports: Asthma Psychiatric Medical History: Denies: Depression Past Surgical History Past Surgical History: Reports: Cholecystectomy Social History Information Source: Patient Smoking Status: Never Smoker Frequency of Alcohol Use: None Hx Recreational Drug Use: No Drugs: None Hx Prescription Drug Abuse: No - Advance Directive Resuscitation Status: Full Code Family History Family History: Hypertension Parental Family History Reviewed: Yes Children Family History Reviewed: NA Sibling(s) Family History Reviewed.: Yes Medication/Allergy Home Medications: Albuterol Sulfate [Proair HFA Inhalation Aerosol 8.5 gm MDI] 2 puff IH Q4HP PRN 02/01/19 Allergies/Adverse Reactions: prednisone Adverse Reaction (Verified 01/31/19 14:51) Migraine Review of Systems Constitutional: ABSENT: chills, fever(s) Eyes: ABSENT: visual disturbances Nose, Mouth, and Throat: ABSENT: headache(s) Cardiovascular: ABSENT: chest pain Respiratory: PRESENT: cough, dyspnea, sputum. ABSENT: hemoptysis Gastrointestinal: PRESENT: abdominal pain. ABSENT: constipation, diarrhea, nausea, vomiting Genitourinary: ABSENT: difficulty urinating, dysuria Musculoskeletal: ABSENT: back pain Integumentary: ABSENT: diaphoresis Neurological: ABSENT: confusion Endocrine: PRESENT: polyuria Physical Exam Vital Signs: Temp Pulse Resp BP Pulse Ox 99.9 F 94 16 119/76 92 02/04/19 14:11 02/04/19 11:12 02/04/19 15:01 02/04/19 15:01 02/04/19 15:01 Intake & Output 02/03/19 02/04/19 02/05/19 06:59 06:59 06:59 Intake Total 1000 Balance 1000 Weight 150.8 kg General appearance: PRESENT: no acute distress, cooperative, morbidly obese Neck exam: ABSENT: JVD Respiratory exam: PRESENT: clear to auscultation ang[place], symmetrical, unlabored. ABSENT: tachypnea, wheezes Cardiovascular exam: PRESENT: RRR, +S1, +S2. ABSENT: tachycardia GI/Abdominal exam: PRESENT: normal bowel sounds, soft, tenderness. ABSENT: distended, firm, guarding, rebound, rigid Neurological exam: PRESENT: alert, awake, oriented to person, oriented to place, oriented to time, oriented to situation Results Laboratory Results: 02/04/19 11:05 02/04/19 11:57 02/04/19 02/04/19 02/04/19 11:05 11:05 11:57 WBC 9.7 RBC 5.47 Hgb 15.2 Hct 45.3 MCV 83 MCH 27.8 MCHC 33.6 RDW 14.1 H Plt Count 199 Seg Neutrophils % 76.8 Sodium Cancelled 140.3 Potassium Cancelled 3.6 Chloride Cancelled 101 Carbon Dioxide Cancelled 28 Anion Gap Cancelled 11 BUN Cancelled 16 Creatinine Cancelled 1.37 H Est GFR ( Amer) Cancelled > 60 Est GFR (Non-Af Amer) Cancelled Glucose Cancelled 92 Calcium Cancelled 8.9 Total Bilirubin Cancelled 0.9 AST Cancelled 48 Alkaline Phosphatase Cancelled 52 Total Protein Cancelled 7.5 Albumin Cancelled 4.0 Impressions: Chest X-Ray 02/04/19 11:22 IMPRESSION: NO ACUTE RADIOGRAPHIC FINDING IN THE CHEST. Chest/Abdomen CTA 02/04/19 12:57 IMPRESSION: Patchy bilateral airspace disease most consistent with multifocal pneumonia. No pulmonary emboli. Assessment and Plan - Diagnosis (1) Acute respiratory failure with hypoxia Is this a current diagnosis for this admission?: Yes Plan: Likely secondary to pneumonia. Patient reportedly desatted into the 80s on room air while in the ER which is very unusual for patient's age Oxygen supplementation via nasal cannula (2) Healthcare associated bacterial pneumonia Is this a current diagnosis for this admission?: Yes Plan: Evidenced by productive cough, fever and CT findings of bilateral lower lobe pneumonia Will treat as healthcare associated pneumonia given recent hospitalization Vancomycin plus Zosyn Obtain sputum cultures Follow-up blood cultures Incentive spirometry Expectorant (3) Cholecystitis Is this a current diagnosis for this admission?: Yes Plan: Patient is status post laparoscopic cholecystectomy on 02/01/[address] Cavanaugh Incision sites look fine with no evidence of surgical wound infection at this time Pain control with Tylenol and tramadol for breakthrough Incentive spirometry (4) History of asthma Is this a current diagnosis for this admission?: Yes Plan: No evidence of current exacerbation nebulizer - Time Time Spent with patient: 35 or more minutes
[2019-02-04] MEDS: ALBUTEROL SULFATE 0.083% NEB 2.5 MG/3 ML AMPUL NEB SCH (19:51)
[2019-02-04] MEDS: TRAMADOL HCL 50 MG TABLET PO PRN (20:03)
[2019-02-04] MEDS: PIPERACILLIN SODIUM/TAZOBACTAM 3.375 GM in NORMAL SALINE 100 ML IV SCH (20:09)
[2019-02-04] MEDS ORDERED: PIPERACILLIN/TAZOBACTAM 3.375 GM VIAL IV SCH (21:00)
[2019-02-04] MEDS: GUAIFENESIN 600 MG TABLET.SA PO SCH (21:22)
[2019-02-04] MEDS ORDERED: VANCOMYCIN HCL INJ 1000 MG VIAL IV SCH (22:00)
[2019-02-05] MEDS: PIPERACILLIN SODIUM/TAZOBACTAM 3.375 GM in NORMAL SALINE 100 ML IV SCH ×4 (02:49→21:14)
[2019-02-05] MEDS: VANCOMYCIN HCL 1,500 MG in DEXTROSE 5%-WATER 250 ML IV SCH ×2 (05:41→17:47)
[2019-02-05 07:10] LABS: ABSOLUTE EOSINOPHILS # (AUTO) 0.1 10^3/uL (0.0-0.6); ABSOLUTE LYMPHOCYTES (AUTO) 1.3 10^3/uL (0.5-4.7); ABSOLUTE MONOCYTES (AUTO) 0.5 10^3/uL (0.1-1.4); ABSOLUTE NEUT (AUTO) 5.1 10^3/uL (1.7-8.2); BASOPHILS % (AUTO) 0.3 % (0-2); EOSINOPHILS % (AUTO) 1.7 % (0-6); HEMATOCRIT 41.9 % (37.9-51.0); LYMPHOCYTES % (AUTO) 18.4 % (13-45); MEAN CORPUSCULAR HEMOGLOBIN 27.6 pg (27.0-33.4); MEAN CORPUSCULAR HGB CONC 33.5 g/dL (32.0-36.0); MEAN CORPUSCULAR VOLUME 82 fl (80-97); MONOCYTES % (AUTO) 6.7 % (3-13); PLATELET COUNT 180 10^3/uL (150-450); RED BLOOD COUNT 5.08 10^6/uL (4.35-5.55); RED CELL DISTRIBUTION WIDTH 14.1 % (11.5-14.0); SEGMENTED NEUTROPHILS % (AUTO) 72.9 % (42-78); TOTAL CELLS COUNTED % (AUTO) 100 %; WHITE BLOOD COUNT 7.1 10^3/uL (4.0-10.5)
[2019-02-05 07:32] LABS: ALBUMIN 3.5 g/dL (3.5-5.0); ALKALINE PHOSPHATASE 46 U/L (38-126); ANION GAP 7 (5-19); ASPARTATE AMINO TRANSFERASE 35 U/L (17-59); BILIRUBIN,DIRECT 0.1 mg/dL (0.0-0.4); BLOOD UREA NITROGEN 16 mg/dL (7-20); CALCIUM 8.4 mg/dL (8.4-10.2); CARBON DIOXIDE 29 mmol/L (22-30); CHLORIDE 101 mmol/L (98-107); GLUCOSE 109 mg/dL (75-110); POTASSIUM 3.6 mmol/L (3.6-5.0); TOTAL PROTEIN 6.7 g/dL (6.3-8.2)
[2019-02-05] MEDS ORDERED: NORMAL SALINE 1000 ML 1,000 ML IV PRN (08:00)
[2019-02-05] MEDS ORDERED: NORMAL SALINE 1000 ML 1,000 ML IV ONE (08:00)
[2019-02-05] MEDS: ALBUTEROL SULFATE 0.083% NEB 2.5 MG/3 ML AMPUL NEB SCH ×2 (08:48→15:57)
[2019-02-05] MEDS: ENOXAPARIN SODIUM INJ 40 MG/0.4 ML DISP.SYRIN SUBCUT SCH (09:22)
[2019-02-05] MEDS: GUAIFENESIN 600 MG TABLET.SA PO SCH ×2 (09:22→21:14)
[2019-02-05] MEDS: TRAMADOL HCL 50 MG TABLET PO PRN (15:45)
--- NOTE | 2019-02-05 18:00 | PDOC PROGRESS REPORT ---
Subjective Progress Note for:: 02/05/19 Subjective:: Patient feels well today. Denies shortness of breath. Still complaining of abdominal pain. Reason For Visit: PNEUOMONIA,HYPOXIA Physical Exam Vital Signs: Temp Pulse Resp BP Pulse Ox 98.6 F 85 18 130/63 H 98 02/05/19 15:24 02/05/19 15:57 02/05/19 15:57 02/05/19 15:24 02/05/19 15:57 Pulse Oximeter Continuous Start: 02/04/19 15:34 Freq: RTQ4 Status: Active Protocol: Document 02/05/19 15:57 [facility] (Rec: 02/05/19 16:01 [facility] [email or web address]) Pulse Oximetry Assessment Oxygen Saturation (92-100) 98 Oxygen Delivery Method Room Air Fraction of Inspired Oxygen (FIO2) 21 Equipment Usage Equipment in Use Continuous SpO2 Machine # 6 Intake & Output 02/04/19 02/05/19 02/06/19 06:59 06:59 06:59 Intake Total 1350 690 Output Total 0 Balance 1350 690 Weight 149.9 kg General appearance: PRESENT: no acute distress, cooperative Respiratory exam: PRESENT: clear to auscultation [place], unlabored. ABSENT: tachypnea, wheezes Cardiovascular exam: PRESENT: RRR, +S1, +S2. ABSENT: tachycardia GI/Abdominal exam: PRESENT: normal bowel sounds, tenderness. ABSENT: rebound, rigid, soft Neurological exam: PRESENT: alert, awake, oriented to person, oriented to place, oriented to time Results Laboratory Results: 02/05/19 06:50 02/05/19 06:50 02/05/19 02/05/19 06:50 06:50 WBC 7.1 RBC 5.08 Hgb 14.0 Hct 41.9 MCV 82 MCH 27.6 MCHC 33.5 RDW 14.1 H Plt Count 180 Seg Neutrophils % 72.9 Sodium 137.4 Potassium 3.6 Chloride 101 Carbon Dioxide 29 Anion Gap 7 BUN 16 Creatinine 1.40 H Est GFR ( Amer) > 60 Glucose 109 Calcium 8.4 Total Bilirubin 1.0 AST 35 Alkaline Phosphatase 46 Total Protein 6.7 Albumin 3.5 Impressions: Chest X-Ray 02/04/19 11:22 IMPRESSION: NO ACUTE RADIOGRAPHIC FINDING IN THE CHEST. Chest/Abdomen CTA 02/04/19 12:57 IMPRESSION: Patchy bilateral airspace disease most consistent with multifocal pneumonia. No pulmonary emboli. Assessment and Plan - Diagnosis (1) Acute respiratory failure with hypoxia Is this a current diagnosis for this admission?: Yes Plan: Likely secondary to pneumonia. Today I placed patient on room air and after about 5 minutes patient's pulse oximetry dropped down into 92 to 93% on room air which is still hypoxic given patient's age. Continue oxygen supplementation via nasal cannula Incentive spirometry (2) Healthcare associated bacterial pneumonia Is this a current diagnosis for this admission?: Yes Plan: Evidenced by productive cough, fever and CT findings of bilateral lower lobe pneumonia Will treat as healthcare associated pneumonia given recent hospitalization Vancomycin plus Zosyn Follow-up blood cultures Incentive spirometry Expectorant (3) Cholecystitis Is this a current diagnosis for this admission?: Yes Plan: Patient is status post laparoscopic cholecystectomy on 02/01/[address] Cavanaugh Incision sites look fine with no evidence of surgical wound infection at this time Pain control with Tylenol and tramadol for breakthrough Incentive spirometry (4) History of asthma Is this a current diagnosis for this admission?: Yes Plan: No evidence of current exacerbation nebulizer - Time Time Spent with patient: 15-24 minutes
[2019-02-06] MEDS: PIPERACILLIN SODIUM/TAZOBACTAM 3.375 GM in NORMAL SALINE 100 ML IV SCH ×2 (03:35→08:13)
[2019-02-06] MEDS: VANCOMYCIN HCL 1,500 MG in DEXTROSE 5%-WATER 250 ML IV SCH (05:46)
[2019-02-06 07:01] LABS: ABSOLUTE EOSINOPHILS # (AUTO) 0.2 10^3/uL (0.0-0.6); ABSOLUTE LYMPHOCYTES (AUTO) 1.5 10^3/uL (0.5-4.7); ABSOLUTE MONOCYTES (AUTO) 0.5 10^3/uL (0.1-1.4); ABSOLUTE NEUT (AUTO) 6.4 10^3/uL (1.7-8.2); BASOPHILS % (AUTO) 0.3 % (0-2); EOSINOPHILS % (AUTO) 2.3 % (0-6); HEMATOCRIT 42.9 % (37.9-51.0); HEMOGLOBIN 14.5 g/dL (13.5-17.0); LYMPHOCYTES % (AUTO) 17.6 % (13-45); MEAN CORPUSCULAR HEMOGLOBIN 27.8 pg (27.0-33.4); MEAN CORPUSCULAR HGB CONC 33.8 g/dL (32.0-36.0); MEAN CORPUSCULAR VOLUME 82 fl (80-97); MONOCYTES % (AUTO) 6.3 % (3-13); PLATELET COUNT 201 10^3/uL (150-450); RED BLOOD COUNT 5.22 10^6/uL (4.35-5.55); RED CELL DISTRIBUTION WIDTH 14.2 % (11.5-14.0); SEGMENTED NEUTROPHILS % (AUTO) 73.5 % (42-78); TOTAL CELLS COUNTED % (AUTO) 100 %; WHITE BLOOD COUNT 8.6 10^3/uL (4.0-10.5)
[2019-02-06 07:30] LABS: VANCOMYCIN,TROUGH 6.3 ug/mL (5.0-20.0)
[2019-02-06] MEDS: TRAMADOL HCL 50 MG TABLET PO PRN (08:13)
[2019-02-06] MEDS: ALBUTEROL SULFATE 0.083% NEB 2.5 MG/3 ML AMPUL NEB SCH (08:47)
--- NOTE | 2019-02-06 09:53 | PDOC DISCHARGE SUMMARY ---
Impression - Admit/DC Date/PCP Admission Date/Primary Care Provider: 02/04/19 14:37 Discharge Date: 02/06/19 - Discharge Diagnosis (1) Acute respiratory failure with hypoxia Is this a current diagnosis for this admission?: Yes (2) Healthcare associated bacterial pneumonia Is this a current diagnosis for this admission?: Yes (3) Cholecystitis Is this a current diagnosis for this admission?: Yes (4) History of asthma Is this a current diagnosis for this admission?: Yes - Assessment Summary: Patient was admitted given findings of pneumonia and acute hypoxic respiratory failure. Patient has been noted to be hypoxic into the 80s on pulse oximetry while on room air according to the ER physician. This is very unusual especially given patient's age. Hypoxia resolved with nasal cannula supplementation. Chest CTA showed no pulmonary embolism but did show patchy bilateral infiltrates consistent with multifocal pneumonia. Given patient's recent hospitalization, patient was brought in for treatment of healthcare associated pneumonia and at high risk of bacterial pneumonia. Patient was started on vancomycin and Zosyn. Blood cultures were obtained. Patient continued to require oxygen up until yesterday afternoon and has tolerated being on room air since later in the afternoon yesterday. Today patient is breathing better and his SPO2 is in the mid 90s on room air. Patient was also noted to have elevated creatinine of around 1.37-1.4. Last baseline noted on prior admission was around 1.15-1.2. Patient is also quite big in size and moreover this creatinine elevation does not meet qualification for an acute kidney injury. Patient is being discharged on Levaquin for 5 more days to complete a 7-day course of antibiotics. Patient has been instructed to follow-up with [facility] for reevaluation of his recent cholecystectomy from his recent cholecystitis/cholelithiasis. - Additional Information Resuscitation Status: Full Code Discharge Diet: Regular Discharge Activity: Activity As Tolerated Referrals: [facility] [Provider Group] (For reevaluation from recent cholecystectomy) Prescriptions: Levofloxacin [Levaquin 750 mg Tablet] 750 mg PO DAILY #5 tablet Home Medications: Acetaminophen [Tylenol 325 mg Tablet] 975 mg PO Q6HP PRN tablet 02/06/19 Levofloxacin [Levaquin 750 mg Tablet] 750 mg PO DAILY #5 tablet 02/06/19 History of Present Illiness History of Present Illness: JUANIS Almaguer DOMINIQUE VAZQUEZ is a 33 year old male with a history of asthma and recent laparoscopic cholecystectomy done for cholelithiasis/cholecystitis, who presents today from urgent care clinic for evaluation of hypoxia. Patient states he has been experiencing cough which is intermittently productive of brownish sputum for almost a month now. He was recently hospitalized here at [facility] about 3-4 days ago and underwent a laparoscopic cholecystectomy with adhesion lysis for treatment of cholecystitis/cholelithiasis. Patient states abdominal pain has been improving somewhat since then. He went to the urgent care clinic where his primary care physician is for referral to a lung specialist for evaluation of asthma he was noted to be hypoxic in the 80s. Patient endorses only mild shortness of breath but does say that he has frequent cough. Denies any chest pain, nausea vomiting. Patient denies any fevers or sweats despite being reported to be febrile. I was informed that patient desatted into the 80s on room air by the ER physician. Physical Exam Vital Signs: Temp Pulse Resp BP Pulse Ox 98.1 F 75 16 134/91 H 97 02/06/19 07:48 02/06/19 07:48 02/06/19 07:48 02/06/19 07:48 02/06/19 07:48 Pulse Oximeter Continuous Start: 02/04/19 15:34 Freq: RTQ4 Status: Active Protocol: Document 02/06/19 04:10 [facility] (Rec: 02/06/19 04:42 [facility] [email or web address]) Pulse Oximetry Assessment Oxygen Saturation (92-100) 95 Oxygen Delivery Method Room Air Fraction of Inspired Oxygen (FIO2) 21 Equipment Usage Equipment in Use Continuous SpO2 Machine # N6 Intake & Output 02/05/19 02/06/19 02/07/19 06:59 06:59 06:59 Intake Total 1350 3950 250 Output Total 0 0 Balance 1350 3950 250 Weight 149.9 kg 153 kg General appearance: PRESENT: no acute distress, cooperative Respiratory exam: PRESENT: clear to auscultation [place] Cardiovascular exam: PRESENT: +S1, +S2 GI/Abdominal exam: PRESENT: normal bowel sounds, soft, tenderness. ABSENT: firm, guarding, rebound, rigid Neurological exam: PRESENT: alert, awake Results Laboratory Results: WBC 8.6 10^3/uL (4.0-10.5) 02/06/19 05:32 RBC 5.22 10^6/uL (4.35-5.55) 02/06/19 05:32 Hgb 14.5 g/dL (13.5-17.0) 02/06/19 05:32 Hct 42.9 % (37.9-51.0) 02/06/19 05:32 MCV 82 fl (80-97) 02/06/19 05:32 MCH 27.8 pg (27.0-33.4) 02/06/19 05:32 MCHC 33.8 g/dL (32.0-36.0) 02/06/19 05:32 RDW 14.2 % (11.5-14.0) H 02/06/19 05:32 Plt Count 201 10^3/uL (150-450) 02/06/19 05:32 Lymph % (Auto) 17.6 % (13-45) 02/06/19 05:32 [place] % (Auto) 6.3 % (3-13) 02/06/19 05:32 Eos % (Auto) 2.3 % (0-6) 02/06/19 05:32 Baso % (Auto) 0.3 % (0-2) 02/06/19 05:32 Absolute Neuts (auto) 6.4 10^3/uL (1.7-8.2) 02/06/19 05:32 Absolute Lymphs (auto) 1.5 10^3/uL (0.5-4.7) 02/06/19 05:32 Absolute Monos (auto) 0.5 10^3/uL (0.1-1.4) 02/06/19 05:32 Absolute Eos (auto) 0.2 10^3/uL (0.0-0.6) 02/06/19 05:32 Absolute Basos (auto) 0.0 10^3/uL (0.0-0.2) 02/06/19 05:32 Seg Neutrophils % 73.5 % (42-78) 02/06/19 05:32 Sodium 137.4 mmol/L (137-145) 02/05/19 06:50 Potassium 3.6 mmol/L (3.6-5.0) 02/05/19 06:50 Chloride 101 mmol/L (98-107) 02/05/19 06:50 Carbon Dioxide 29 mmol/L (22-30) 02/05/19 06:50 Anion Gap 7 (5-19) 02/05/19 06:50 BUN 16 mg/dL (7-20) 02/05/19 06:50 Creatinine 1.37 mg/dL (0.52-1.25) H 02/06/19 05:32 Est GFR ( Amer) > 60 (>60) 02/06/19 05:32 Est GFR (Non-Af Amer) Cancelled 02/04/19 11:05 Est GFR (MDRD) Non-Af > 60 (>60) 02/06/19 05:32 Glucose 109 mg/dL (75-110) 02/05/19 06:50 Lactic Acid (Sepsis) 1.1 mmol/L (0.7-2.1) 02/04/19 11:05 Calcium 8.4 mg/dL (8.4-10.2) 02/05/19 06:50 Total Bilirubin 1.0 mg/dL (0.2-1.3) 02/05/19 06:50 Direct Bilirubin 0.1 mg/dL (0.0-0.4) 02/05/19 06:50 Neonat Total Bilirubin Not Reportable 02/05/19 06:50 Neonat Direct Bilirubin Not Reportable 02/05/19 06:50 Neonat Indirect Bili Not Reportable 02/05/19 06:50 AST 35 U/L (17-59) 02/05/19 06:50 ALT 32 U/L (<50) 02/05/19 06:50 Alkaline Phosphatase 46 U/L (38-126) 02/05/19 06:50 Total Protein 6.7 g/dL (6.3-8.2) 02/05/19 06:50 Albumin 3.5 g/dL (3.5-5.0) 02/05/19 06:50 EGFR Cancelled 02/04/19 11:05 Time Trough Drawn 0532 02/06/19 05:32 Vancomycin Trough 6.3 ug/mL (5.0-20.0) 02/06/19 05:32 Impressions: Chest X-Ray 02/04/19 11:22 IMPRESSION: NO ACUTE RADIOGRAPHIC FINDING IN THE CHEST. Chest/Abdomen CTA 02/04/19 12:57 IMPRESSION: Patchy bilateral airspace disease most consistent with multifocal pneumonia. No pulmonary emboli. Plan Time Spent: Less than 30 Minutes Stroke Is this a Stroke Patient?: No Acute Heart Failure - Is this a Heart Failure Patient?: No
[2019-02-06] MEDS: GUAIFENESIN 600 MG TABLET.SA PO SCH (11:24)
[2019-02-06] MEDS: ENOXAPARIN SODIUM INJ 40 MG/0.4 ML DISP.SYRIN SUBCUT SCH (11:24)
[2019-02-06 12:10] VITALS: BP 132/74
== END 2019-02-06 12:50 | disposition home or self-care (01) | DRG 193 ==
LOC: ER 10:39 → EH 14:37 → 4N 16:13
PROVIDERS: ADMIT Internal Medicine; ATTEND Internal Medicine
DX: J18.9 Pneumonia, unspecified organism (principal); J96.01 Acute respiratory failure with hypoxia; J45.909 Unspecified asthma, uncomplicated; Z82.49 Family history of ischemic heart disease and other diseases of the circulatory system; Z79.51 Long term (current) use of inhaled steroids; Z88.8 Allergy status to other drugs, medicaments and biological substances; Z90.49 Acquired absence of other specified parts of digestive tract; Y95 Nosocomial condition
CPT/HCPCS: 36415; 71046; 71275; 80053; 80202; 82565; 83605; 85025; 87040; 94640; 94762; 94799; 96361; 96374; 99285; J1650; J2270; J2543; J3370; J3490; J7030; J7050; J7060; J7620

== ENCOUNTER 2019-02-09 18:04 | Emergency (ER) | payer BC ==
--- NOTE | 2019-02-09 18:48 | ER Document Report ---
ED Medical Screen (RME) - General Chief Complaint: Abdominal Pain Stated Complaint: ABDOMINAL PAIN Time Seen by Provider: 02/09/19 18:42 Mode of Arrival: Ambulatory Information source: Patient Notes: Patient presents complaining of right side abdominal pain that started this morning. Patient reports gallbladder surgery 8 days ago. Patient states that he subsequently developed pneumonia and was admitted for 2 days this past week. Patient feels as though the pneumonia seems to be better. Patient denies any fever, nausea, vomiting or diarrhea. Patient denies any urinary symptoms. I have greeted and performed a rapid initial assessment of this patient. A comprehensive ED assessment and evaluation of the patient, analysis of test results and completion of the medical decision making process will be conducted by additional ED providers. TRAVEL OUTSIDE OF THE [place] IN LAST 30 DAYS: No - Related Data Allergies/Adverse Reactions: prednisone Adverse Reaction (Verified 02/09/19 18:42) Migraine Past Medical History Pulmonary Medical History: Reports: Hx Asthma Renal/ Medical History: Denies: Hx Peritoneal Dialysis Psychiatric Medical History: Denies: Hx Depression Past Surgical History: Reports: Hx Cholecystectomy - Immunizations Hx Diphtheria, Pertussis, Tetanus Vaccination: Yes Physical Exam - Vital signs Vitals: Temp Pulse Resp BP Pulse Ox 98.6 F 87 20 133/80 H 98 02/09/19 18:12 02/09/19 18:12 02/09/19 18:12 02/09/19 18:12 02/09/19 18:12 - Abdominal Tenderness: Tender - Right side abdomen, Guarding Course - Vital Signs Vital signs: Temp Pulse Resp BP Pulse Ox 98.6 F 87 20 133/80 H 98 02/09/19 18:12 02/09/19 18:12 02/09/19 18:12 02/09/19 18:12 02/09/19 18:12
[2019-02-09 19:27] LABS: APPEARANCE,URINE CLEAR; BILIRUBIN,URINE NEGATIVE (NEGATIVE); COLOR,URINE YELLOW; GLUCOSE, URINE NEGATIVE (NEGATIVE); KETONES,URINE NEGATIVE (NEGATIVE); LEUKOCYTE ESTERASE,URINE NEGATIVE (NEGATIVE); NITRITE,URINE NEGATIVE (NEGATIVE); PROTEIN,URINE NEGATIVE (NEGATIVE); URINE SPECIFIC GRAVITY 1.026; UROBILINOGEN,URINE NEGATIVE mg/dL (<2.0)
--- NOTE | 2019-02-09 19:48 | RADIOLOGY REPORT (SQ) ---
EXAM DESCRIPTION: ACUTE ABDOMEN SERIES COMPLETED DATE/TIME: 02/09/2019 7:26 pm REASON FOR STUDY: r side abd pain, recent elsy, recent pneumonia COMPARISON: None. NUMBER OF VIEWS: Three views. TECHNIQUE: PA chest, supine abdomen and upright/decubitus abdomen radiographic images acquired. LIMITATIONS: None. FINDINGS: CHEST: Lungs clear of infiltrates. FREE AIR: None. No abnormal gas collections. BOWEL GAS PATTERN: Scattered nondilated small bowel loops with small air fluid levels. CALCIFICATIONS: No suspicious calcifications. HARDWARE: Cholecystectomy clips. SOFT TISSUES: No gross mass or suggestion of organomegaly. BONES: No acute fracture. No worrisome bone lesions. OTHER: No other significant finding. IMPRESSION: NONSPECIFIC BOWEL GAS PATTERN. Scattered nondilated small bowel loops with small air fl uid levels.. TECHNICAL DOCUMENTATION: JOB ID: [id number] [employer]- All Rights Reserved Reading location - IP/workstation name: [employer]
[2019-02-09 19:50] LABS: ABSOLUTE EOSINOPHILS # (AUTO) 0.1 10^3/uL (0.0-0.6); ABSOLUTE LYMPHOCYTES (AUTO) 1.7 10^3/uL (0.5-4.7); ABSOLUTE MONOCYTES (AUTO) 0.8 10^3/uL (0.1-1.4); ABSOLUTE NEUT (AUTO) 10.1 10^3/uL (1.7-8.2); BASOPHILS % (AUTO) 0.3 % (0-2); EOSINOPHILS % (AUTO) 0.8 % (0-6); HEMATOCRIT 46.5 % (37.9-51.0); HEMOGLOBIN 15.6 g/dL (13.5-17.0); LYMPHOCYTES % (AUTO) 13.4 % (13-45); MEAN CORPUSCULAR HEMOGLOBIN 27.6 pg (27.0-33.4); MEAN CORPUSCULAR HGB CONC 33.6 g/dL (32.0-36.0); MEAN CORPUSCULAR VOLUME 82 fl (80-97); MONOCYTES % (AUTO) 6.2 % (3-13); PLATELET COUNT 277 10^3/uL (150-450); RED BLOOD COUNT 5.67 10^6/uL (4.35-5.55); SEGMENTED NEUTROPHILS % (AUTO) 79.3 % (42-78); TOTAL CELLS COUNTED % (AUTO) 100 %; WHITE BLOOD COUNT 12.8 10^3/uL (4.0-10.5)
[2019-02-09 20:10] LABS: ALBUMIN 4.4 g/dL (3.5-5.0); ALKALINE PHOSPHATASE 68 U/L (38-126); ANION GAP 10 (5-19); ASPARTATE AMINO TRANSFERASE 25 U/L (17-59); BILIRUBIN,DIRECT 0.2 mg/dL (0.0-0.4); BILIRUBIN,TOTAL 0.6 mg/dL (0.2-1.3); BLOOD UREA NITROGEN 17 mg/dL (7-20); CALCIUM 9.9 mg/dL (8.4-10.2); CARBON DIOXIDE 27 mmol/L (22-30); CHLORIDE 102 mmol/L (98-107); GLUCOSE 90 mg/dL (75-110); POTASSIUM 4.2 mmol/L (3.6-5.0); TOTAL PROTEIN 8.4 g/dL (6.3-8.2)
[2019-02-09] MEDS ORDERED: NORMAL SALINE 1000 ML 1,000 ML IV ONE (20:30)
[2019-02-09] MEDS ORDERED: MORPHINE SULFATE 10 MG/ML INJ IV ONE (20:54)
--- NOTE | 2019-02-09 22:08 | RADIOLOGY REPORT (SQ) ---
EXAM DESCRIPTION: RadLex: CT ABDOMEN PELVIS WITH IV CONTRAST CLINICAL HISTORY: 33 years Male; RUQ pain, recent elsy 8 days ago TECHNIQUE: CT of the abdomen and pelvis using intravenous contrast. All CT scans at this facility use dose modulation, iterative reconstruction, and/or weight based dosing when appropriate to reduce radiation dose to as low as reasonably achievable. COMPARISON: None. FINDINGS: Abdomen: Liver:No focal lesions. No intrahepatic ductal distention. Gallbladder:Surgically absent, with mild edema in the gallbladder fossa but no fluid collection. There is mild subcutaneous edema at the laparoscopic ports in the upper abdominal wall. No subcutaneous fluid collections. Pancreas:Within normal limits Spleen:Within normal limits Right kidney:No hydronephrosis. No focal lesion. Left kidney:No hydronephrosis. No focal lesion. Adrenal glands:Within normal limits Vascular structures:Within normal limits Pelvis: Small bowel:No significant distention. Appendix:Within normal limits Colon:No distention or acute pericolonic edema. No free intraperitoneal fluid or air. Bones: No acute bone findings. Bladder: Unremarkable. No pelvic mass or adenopathy. IMPRESSION: 1. Changes of recent cholecystectomy, with mild edema in the gallbladder fossa. 2. No abscess or other acute findings.
--- NOTE | 2019-02-09 22:57 | ER Document Report ---
ED GI/ - General Chief Complaint: Abdominal Pain Stated Complaint: ABDOMINAL PAIN Time Seen by Provider: 02/09/19 18:42 Primary Care Provider: MASSIMO SONI MD [ACTIVE STAFF] - 02/10/19 Mode of Arrival: Ambulatory Notes: Patient is a 33-year-old male that comes to the emergency department for chief complaint of right-sided abdominal pain. He states this started earlier today, he is postop cholecystectomy by Dr. Soni here on 02/02/2019, he also had a postoperative pneumonia that he was hospitalized for. He states he is on antibiotics at home although he cannot recall the name. He states he is not on pain medication. He states he is having bowel movements, denies vomiting, d enies fever, denies injury. He is able to eat, he denies any other complaints. Past medical history of asthma, denies medical history otherwise. TRAVEL OUTSIDE OF THE [place] IN LAST 30 DAYS: No - Related Data Allergies/Adverse Reactions: prednisone Adverse Reaction (Verified 02/09/19 18:42) Migraine Home Medications: levaquin. albuterol Past Medical History - General Information source: Patient - Social History Smoking Status: Never Smoker Chew tobacco use (# tins/day): No Frequency of alcohol use: None Drug Abuse: None Lives with: Family Family History: Hypertension Patient has suicidal ideation: No Patient has homicidal ideation: No Pulmonary Medical History: Reports: Hx Asthma Renal/ Medical History: Denies: Hx Peritoneal Dialysis Psychiatric Medical History: Denies: Hx Depression Past Surgical History: Reports: Hx Cholecystectomy - Immunizations Hx Diphtheria, Pertussis, Tetanus Vaccination: Yes Review of Systems - Review of Systems Constitutional: No symptoms reported EENT: No symptoms reported Cardiovascular: No symptoms reported Respiratory: No symptoms reported Gastrointestinal: See HPI Genitourinary: No symptoms reported Male Genitourinary: No symptoms reported Musculoskeletal: No symptoms reported Skin: No symptoms reported Hematologic/Lymphatic: No symptoms reported Neurological/Psychological: No symptoms reported Physical Exam - Vital signs Vitals: Temp Pulse Resp BP Pulse Ox 98.6 F 87 20 133/80 H 98 02/09/19 18:12 02/09/19 18:12 02/09/19 18:12 02/09/19 18:12 02/09/19 18:12 - Notes Notes: GENERAL: Alert, interacts well. No acute distress. HEAD: Normocephalic, atraumatic. EYES: Pupils equal, round, and reactive to light. Extraocular movements intact. ENT: Oral mucosa moist, tongue midline. Oropharynx unremarkable. Airway patent. LUNGS: Clear to auscultation bilaterally, no wheezes, rales, or rhonchi. No respiratory distress. HEART: Regular rate and rhythm. No murmur ABDOMEN: There are midline abdominal scars with small incisions with dressings over them. No noted erythema, fluctuance, or significant tenderness. There is mild generalized abdominal tenderness, no areas of guarding or rigidity. Bowel sounds are present. GENITOURINARY: No swelling or tenderness. EXTREMITIES: Moves all 4 extremities spontaneously. No edema, normal radial and dorsalis pedis pulses bilaterally. No cyanosis. BACK: no cervical, thoracic, lumbar midline tenderness. No saddle anesthesia, normal distal neurovascular exam. Moves all extremities in full range of motion. NEUROLOGICAL: Alert and oriented x3. Normal speech. Cranial nerves II through XII grossly intact. PSYCH: Normal affect, normal mood. SKIN: Warm, dry, normal turgor. No rashes or lesions noted. Course - Re-evaluation Re-evalutation: 02/09/19 22:56 Patient was medicated from triage, given IV fluids, patient has no current complaints. No signs of wound infection. CBC shows mild leukocytosis, no bandemia, nonspecific. No anemia. Chemistry unremarkable, lipase borderline at 388 but not significantly changed from prior and patient does not have particular left upper quadrant pain. Initially patient had an abdominal film which showed possible air-fluid levels and patient had a CAT scan with IV contrast ordered after that by triage which shows no acute findings. Appendix visualized and noted to be within normal limits. No abscess noted. I called and spoke with Dr. Larsen, general surgeon vice president of talent acquisition for Dr. Soni, discussed patient's surgery, presentation, work-up, evaluation. Recommendation for patient to be provided with symptom management, stool softener, and to follow-up closely in the surgical clinic with return precautions. I discussed this with patient and family, they state appreciation and agreement. Stable at time of discharge. - Vital Signs Vital signs: Temp Pulse Resp BP Pulse Ox 98.4 F 74 17 134/85 H 95 02/09/19 23:46 02/09/19 23:46 02/09/19 23:46 02/09/19 23:46 02/09/19 23:46 - Laboratory Result Diagrams: 02/09/19 19:35 02/09/19 19:35 Laboratory results interpreted by me: 02/09/19 02/09/19 19:35 19:35 WBC 12.8 H RBC 5.67 H Absolute Neuts (auto) 10.1 H Seg Neutrophils % 79.3 H Creatinine 1.34 H Total Protein 8.4 H Lipase 388.5 H Discharge - Discharge Clinical Impression: Abdominal pain Qualifiers: Abdominal location: generalized Qualified Code(s): R10.84 - Generalized abdominal pain Condition: Stable Disposition: HOME, SELF-CARE Additional Instructions: The wounds look good, your exam and your work-up including CAT scan imaging do not show any concerning findings at this time. I spoke with Dr. Larsen, on-call for Dr. Nae rushing. Take the stool softener as prescribed for the next several days, take the pain medication and/or nausea medication if needed, rest and drink plenty of fluids. Follow-up closely with the surgical clinic as listed. Return if you worsen including vomiting, fever, swelling of the abdomen, severe worsening pain, or any other concerning or worsening symptoms. Prescriptions: Docusate Sodium [Colace 100 mg Capsule] 100 mg PO ASDIR PRN #30 capsule PRN Reason: Hydrocodone/Acetaminophen [[place] 5-325 mg Tablet] 1 - 2 tab PO ASDIR #10 tablet Referrals: MASSIMO SONI MD [ACTIVE STAFF] - 02/10/19
[2019-02-09] MEDS ORDERED: HYDROCODONE/ACETAMINOPHEN 5-325 MG (6 TAB/ER DISP) PO PRN (23:00)
[2019-02-09 23:47] VITALS: BP 134/85
== END 2019-02-09 23:46 | disposition home or self-care (01) ==
LOC: ER 18:04
DX: R10.84 Generalized abdominal pain (principal); Z90.49 Acquired absence of other specified parts of digestive tract
CPT/HCPCS: 99284; 96361; 96374; 36415; 83690; 85025; 80053; 81001; 74022; 74177; J2270; J7030

== ENCOUNTER 2019-11-24 20:37 | Emergency (ER) | payer BC ==
[2019-11-24 20:59] VITALS: BP 124/82
[2019-11-24] MEDS ORDERED: KETOROLAC TROMETHAMINE 60 MG/2 ML SDV IM ONE (21:20)
--- NOTE | 2019-11-24 21:25 | ER Document Report ---
HPI - HPI Patient complains to provider of: Back pain Time Seen by Provider: 11/24/19 21:11 Context: 32-year-old male presents to the emergency room complaining of persistent lower back pain since August after slip and fall. [facility] he was seen by the health department and then [facility] and then he was referred to [facility] where he was given muscle relaxers and diagnosed with degenerative disc disease and muscle spasms. [facility] he was prescribed muscle relaxers but he is run out and he has not followed up. He denies any loss control of her bowels or bladder, no saddle anesthesia. No red flags. has been using icy hot, Biofreeze and ibuprofen without relief. [facility] he has not followed up with [facility]. Associated Symptoms: None Exacerbated by: Movement Relieved by: Remaining still Similar symptoms previously: Yes - Chronic back pain Recently seen / treated by doctor: No - ROS Systems Reviewed and Negative: Yes All other systems reviewed and negative - CONSTITUTIONAL Constitutional: DENIES: Fever - NEURO Neurology: DENIES: Headache, Weakness - REPRODUCTIVE Reproductive: DENIES: : - MUSCULOSKELETAL Musculoskeletal: REPORTS: Back Pain - DERM Skin Color: Normal Skin Problems: None Past Medical History - General Information source: Patient - Social History Smoking Status: Never Smoker Frequency of alcohol use: None Drug Abuse: None Family History: Hypertension Pulmonary Medical History: Reports: Hx Asthma Renal/ Medical History: Denies: Hx Peritoneal Dialysis Psychiatric Medical History: Denies: Hx Depression Past Surgical History: Reports: Hx Cholecystectomy - Immunizations Hx Diphtheria, Pertussis, Tetanus Vaccination: Yes Vertical Provider Document - CONSTITUTIONAL Agree With Documented VS: Yes Exam Limitations: No Limitations General Appearance: Mild Distress - INFECTION CONTROL TRAVEL OUTSIDE OF THE [place] IN LAST 30 DAYS: No - HEENT HEENT: Atraumatic, Normocephalic - NECK Neck: Normal Inspection, Supple, Thyroid Normal - RESPIRATORY Respiratory: Breath Sounds Normal, No Respiratory Distress - CARDIOVASCULAR Cardiovascular: No Murmur, Tachycardia - BACK Back: Abnormal Inspection - Tenderness on palpation from L4-S1. Lower lumbar muscle spasms are palpated. Nontender of the sciatic notches. Negative straight leg raising bilaterally. No step-offs, no obvious deformities noted.. negative: CVA Tenderness-Right, CVA Tenderness-Left - NEURO Level of Consciousness: Awake, Alert, Appropriate Motor/Sensory: No Motor Deficit, No Sensory Deficit Deep Tendon Reflexes: 2+ Notes: Ambulatory with a steady gait. Neurovascularly intact. - DERM Integumentary: Warm, Dry, No Rash Course - Re-evaluation Re-evalutation: 11/24/19 21:31 Patient with persistent chronic back pain with no new trauma or injury. Not currently seeing Ortho or primary care physician. States he is not getting relief with the Biofreeze with IcyHot. Discussed diagnosis with patient. Counseled take muscle relaxers as prescribed. Will be given IM Toradol prior to discharge. He was counseled on the importance of outpatient follow-up with either his primary care physician or orthopedics for further treatment evaluation of his chronic back pain. Patient was neurovascularly intact. Negative straight leg raising bilaterally. He was ambulatory with a steady gait. Patient was given strict return to the emergency room guidelines. Return for any new or worsening symptoms. All questions were answered. Patient verbalized understanding and agrees with plan of care. - Vital Signs Vital signs: Temp Pulse Resp BP Pulse Ox 98.7 F 109 H 18 124/82 96 11/24/19 20:53 11/24/19 20:53 11/24/19 20:53 11/24/19 20:53 11/24/19 20:53 Discharge - Discharge Clinical Impression: Chronic back pain Qualifiers: Back pain location: low back pain Back pain laterality: midline Sciatica presence: without sciatica Qualified Code(s): M54.5 - Low back pain Condition: Stable Disposition: HOME, SELF-CARE Instructions: Low Back Pain ([facility]) Additional Instructions: You have been seen in the Emergency Department (ED) today for back pain. Your workup and exam have not shown any acute abnormalities and you are likely suffering from muscle strain or possible problems with your discs, but there is no treatment that will fix your symptoms at this time. Please take the Flexeril that has been prescribed as directed. You should also purchase a local lidocaine cream such as "aspercreme with lidocaine" and use per bottle instructions to the affected area. Apply heat to the area as often as you are able. Continue to keep active and avoid prolonged periods of bed rest. Please follow up with your doctor as soon as possible regarding today's ED visit and your back pain. Return to the ED for worsening back pain, fever, weakness or numbness of either leg, or if you develop either (1) an inability to urinate or have bowel movements, or (2) loss of your ability to control your bathroom functions (if you start having "accidents"), or if you develop other new symptoms that concern you.concern you. Prescriptions: Cyclobenzaprine HCl [Flexeril 10 mg Tablet] 10 mg PO TIDP PRN #15 tab PRN Reason: Forms: Return to Work
== END 2019-11-24 21:40 | disposition home or self-care (01) ==
LOC: ER 20:37
DX: G89.29 Other chronic pain (principal); M54.5 Low back pain; W01.0XXA Fall on same level from slipping, tripping and stumbling without subsequent striking against object, initial encounter; J45.909 Unspecified asthma, uncomplicated; M62.830 Muscle spasm of back
CPT/HCPCS: 99283; 96372; J1885

== ENCOUNTER 2020-03-04 09:39 | Emergency (ER) | payer BC ==
--- NOTE | 2020-03-04 10:50 | ER Document Report ---
HPI - HPI Time Seen by Provider: 03/04/20 10:30 Pain Level: 4 Notes: 34-year-old male presenting to the emergency department chief complaint of right hand pain. Patient reports pain at the palm of his hand near the first digit. He denies any known injury. He reports he saw his primary care provider who put him on prednisone and Bactrim. He states he did not complete these medications as they "were not helping. He does report taking ibuprofen, states when he ta kes ibuprofen the pain is relieved however it comes back when the ibuprofen wears off. - REPRODUCTIVE Reproductive: DENIES: : - MUSCULOSKELETAL Musculoskeletal: REPORTS: Extremity pain Past Medical History - General Information source: Patient - Social History Smoking Status: Never Smoker Chew tobacco use (# tins/day): No Frequency of alcohol use: None Drug Abuse: None Family History: Hypertension Pulmonary Medical History: Reports: Hx Asthma Renal/ Medical History: Denies: Hx Peritoneal Dialysis Psychiatric Medical History: Denies: Hx Depression Past Surgical History: Reports: Hx Cholecystectomy, Hx Testicular Surgery - Immunizations Hx Diphtheria, Pertussis, Tetanus Vaccination: Yes Vertical Provider Document - CONSTITUTIONAL Notes: PHYSICAL EXAMINATION: GENERAL: Well-appearing, well-nourished and in no acute distress. HEAD: Atraumatic, normocephalic. EYES: Pupils equal round extraocular movements intact, conjunctiva are normal. ENT: Nares patent NECK: Normal range of motion LUNGS: No respiratory distress Musculoskeletal: Normal range of motion, normal flexion and extension, thanh refill less than 3 seconds, strong radial pulse, no snuffbox tenderness. NEUROLOGICAL: Normal speech, normal gait. PSYCH: Normal mood, normal affect. SKIN: Warm, Dry, normal turgor, no rashes or lesions noted. - INFECTION CONTROL TRAVEL OUTSIDE OF THE [place] IN LAST 30 DAYS: No Course - Vital Signs Vital signs: Temp Pulse Resp BP Pulse Ox 98.3 F 74 16 168/89 H 98 03/04/20 09:42 03/04/20 09:42 03/04/20 09:42 03/04/20 09:42 03/04/20 09:42 - Laboratory Results Critical Laboratory Results Reviewed: No Critical Results - Radiology Results Critical Radiology Results Reviewed: No Critical Results Discharge - Discharge Clinical Impression: Hand pain Qualifiers: Laterality: right Qualified Code(s): M79.641 - Pain in right hand Condition: Stable Disposition: HOME, SELF-CARE Additional Instructions: Your x-ray did not show any acute abnormality. Please try taking the medication that we have prescribed. Do not take any ibuprofen or Motrin or Advil while taking this medication as t hey are in the same class of medications. Please follow back up with your primary care provider for further plan. Prescriptions: Diclofenac Sodium 75 mg PO BID #20 tablet.dr Referrals: MOHAN KENNY PA-C [Primary Care Provider] - Follow up as needed
--- NOTE | 2020-03-04 11:33 | RADIOLOGY REPORT (SQ) ---
EXAM DESCRIPTION: HAND RIGHT 3 VIEWS IMAGES COMPLETED DATE/TIME: 03/04/2020 10:57 am REASON FOR STUDY: palm pain x2 weeks, denies known injury COMPARISON: None. EXAM PARAMETERS: NUMBER OF VIEWS: Three views. TECHNIQUE: AP, lateral and oblique radiographic images acquired of the right hand. LIMITATIONS: None. FINDINGS: MINERALIZATION: Normal. BONES: No acute fracture or dislocation. No worrisome bone lesions. No significant osteophytes. JOINTS: No erosions. No david-articular osteopenia. No chondrocalcinosis. SOFT TISSUES: No swelling. No calcifications. OTHER: No other significant finding. IMPRESSION: NEGATIVE STUDY OF THE RIGHT HAND. NO EXPLANATION FOR PAIN. TECHNICAL DOCUMENTATION: JOB ID: [id number] 2010 [employer]- All Rights Reserved Reading location - IP/workstation name: [email or web address]
[2020-03-04 12:05] VITALS: BP 138/82
== END 2020-03-04 12:05 | disposition home or self-care (01) ==
LOC: ER 09:39
DX: M79.641 Pain in right hand (principal); Z79.899 Other long term (current) drug therapy; J45.909 Unspecified asthma, uncomplicated
CPT/HCPCS: 99283

== ENCOUNTER 2020-03-08 16:53 | Emergency (ER) | payer BC ==
--- NOTE | 2020-03-08 17:35 | ER Document Report ---
ED General - General Chief Complaint: Flu Symptoms Stated Complaint: COUGH/CONGESTON/LOSS OF TASTE,SMELL Time Seen by Provider: 03/08/20 17:10 Primary Care Provider: MOHAN KENNY PA-C [Primary Care Provider] - Follow up in 3-5 days TRAVEL OUTSIDE OF THE [place] IN LAST 30 DAYS: No - HPI Notes: Patient is a 34-year-old male who presents with dry cough, chills, fatigue, loss of taste since yesterday. He states he wants a Covid test. Patient also states he has headaches. No neck pain. No fevers. He has not had any known Covid contacts. No chest pain. He denies any nausea or vomiting or diarrhea. No shortness of breath. - Related Data Allergies/Adverse Reactions: prednisone Adverse Reaction (Verified 03/08/20 18:54) Migraine Past Medical History - General Information source: Patient - Social History Smoking Status: Never Smoker Family History: Hypertension Pulmonary Medical History: Reports: Hx Asthma Renal/ Medical History: Denies: Hx Peritoneal Dialysis Psychiatric Medical History: Denies: Hx Depression Past Surgical History: Reports: Hx Cholecystectomy, Hx Testicular Surgery - Immunizations Hx Diphtheria, Pertussis, Tetanus Vaccination: Yes Review of Systems - Review of Systems Notes: CONSTITUTIONAL: No fever, fatigue or weight loss. Positive for loss of taste. Positive for chills and myalgias. SKIN: No rash. HENT: No congestion, ear pain, or sore throat. EYES: No recent vision problems or eye pain. CARDIOVASCULAR: No chest pain or edema. RESPIRATORY: Positive for cough. GASTROINTESTINAL: No abdominal pain, nausea, vomiting, bloody stools or diarr hea. GENITOURINARY: No dysuria. MUSCULOSKELETAL: No joint pain or swelling. NEUROLOGIC: No seizures. No focal weakness or sensory changes. Positive for headache. HEMATOLOGIC: No unusual bruising or bleeding. PSYCHIATRIC: No depression or anxiety. Physical Exam - Vital signs Vitals: Temp Pulse Resp BP Pulse Ox 98.3 F 89 20 144/76 H 100 03/08/20 17:03 03/08/20 17:03 03/08/20 17:03 03/08/20 17:03 03/08/20 17:03 - General General appearance: Appears well In distress: None Notes: VITAL SIGNS: Within normal limits. GENERAL: No acute distress, non-toxic appearance. HEAD: Normal with no signs of head trauma. EYES: Conjunctiva normal, no discharge. EARS: Hearing grossly intact. NOSE: Normal. NECK: Normal range of motion, no tenderness, supple, no lymphadenopathy, No adenopathy, no JVD. CHEST: Clear breath sounds bilaterally. No wheezes, rales, or rhonchi. CARDIAC: Regular rate and rhythm. S1 and S2, without murmurs, gallops, or rubs. VASCULAR: No Edema. ABDOMEN: Normal and soft with no tenderness MUSCULOSKELETAL: Good range of motion of all major joints. Extremities without clubbing, cyanosis or edema. NEUROLOGICAL: Alert and oriented x 3. No focal sensory or strength deficits. Speech normal. Follows commands appropriately. PSYCHIATRIC: Normal Affect, judgement and mood. SKIN: Normal appearance with no rashes or lesions. Course - Re-evaluation Re-evalutation: 03/08/20 20:47 Patient appears well on exam. He states he is not taking anything for the headache because he has a Tylenol allergy and he is currently on diclofenac for wrist pain. Patient had a Covid test sent. He was told that he needs to self isolate until he is called with a negative result. Patient's x-ray was suspicious for pneumonia. I have sent him with a Z-Zeus. He is on room air and in no acute distress. Patient was told to take a multivitamin. He was told to get rest and stay hydrated. I instructed him that if he does not take diclofenac, he can take ibuprofen instead. Patient was agreeable to this. He was given strict return precautions. - Vital Signs Vital signs: Temp Pulse Resp BP Pulse Ox 98.5 F 78 18 138/72 H 100 03/08/20 19:35 03/08/20 19:35 03/08/20 19:35 03/08/20 19:35 03/08/20 19:35 - Laboratory Results Critical Laboratory Results Reviewed: No Critical Results - Radiology Results Critical Radiology Results Reviewed: No Critical Results Discharge - Discharge Clinical Impression: Suspected COVID-19 virus infection Pneumonia, community acquired Qualifiers: Laterality: right Lung location: unspecified part of lung Qualified Code(s): J18.9 - Pneumonia, unspecified organism Condition: Stable Disposition: HOME, SELF-CARE Instructions: COVID-19 Guidance for Persons Under Investigation, Pneumonia (O ) Additional Instructions: Your x-ray suspicious for pneumonia. You were also tested for Covid. You must self isolate until you are called with the results. You can take [id number] medications for symptoms. I will also give you an antibiotic. Please return to the ER for any shortness of breath or worsening symptoms. Follow up with your family doctor. Please make sure you are staying hydrated. You can take a multivitamin daily. Prescriptions: Azithromycin [Zithromax] 250 mg PO DAILY 4 Days #4 tablet Referrals: MOHAN KENNY PA-C [Primary Care Provider] - Follow up in 3-5 days
[2020-03-08] MEDS ORDERED: KETOROLAC TROMETHAMINE 60 MG/2 ML SDV IM ONE (18:17)
[2020-03-08 18:26] LABS: A TYPE INFLUENZA AG NEGATIVE (NEGATIVE); B INFLUENZA AG NEGATIVE (NEGATIVE)
--- NOTE | 2020-03-08 18:47 | RADIOLOGY REPORT (SQ) ---
EXAM DESCRIPTION: CHEST SINGLE VIEW IMAGES COMPLETED DATE/TIME: 03/08/2020 5:54 pm REASON FOR STUDY: cough, covid symptoms COMPARISON: 02/04/2019 EXAM PARAMETERS: NUMBER OF VIEWS: One view. TECHNIQUE: Single frontal radiographic view of the chest acquired. RADIATION DOSE: NA LIMITATIONS: None. FINDINGS: LUNGS AND PLEURA: Right infrahilar patchy opacity suggested, may represent pneumonia. . The left lung is clear. No pneumothorax or pleural effusion. MEDIASTINUM AND HILAR STRUCTURES: No masses. Contour normal. HEART AND VASCULAR STRUCTURES: Heart normal in size. Normal vasculature. BONES: No acute findings. HARDWARE: None in the chest. OTHER: No other significant finding. IMPRESSION: 1. Right infrahilar opacity is suggested may be on the basis of pneumonia. TECHNICAL DOCUMENTATION: JOB ID: [id number] 2010 [employer]- All Rights Reserved Reading location - IP/workstation name: [email or web address]
[2020-03-08] MEDS ORDERED: AZITHROMYCIN 250 MG TABLET PO ONE (19:11)
[2020-03-08 19:36] VITALS: BP 138/72
== END 2020-03-08 19:33 | disposition home or self-care (01) ==
LOC: ER 16:53
DX: U07.1 COVID-19 (principal); J12.82 Pneumonia due to coronavirus disease 2019; R68.89 Other general symptoms and signs; R43.8 Other disturbances of smell and taste; R53.83 Other fatigue; Z90.49 Acquired absence of other specified parts of digestive tract
CPT/HCPCS: 99284; 96372; 87804; 71045; U0003; J1885; C9803; 87635